=== PATIENT | female | born 1995 | race Caucasian/White ===

== ENCOUNTER 2024-11-18 16:03 | Outpatient (CLI) | payer BC, SELFPAY ==
[2024-11-18 19:18] LABS: HCG,Quantitative 47761 mIU/ml (0-5.42)
[2024-11-20 10:09] LABS: Progesterone 21.5 ng/mL (.)
== END 2024-11-18 23:59 | disposition home or self-care (01) ==
PROVIDERS: PCP Nurse Practitioner Family; Visit Provider Obstetrics & Gynecology
DX: Z32.00 Encounter for pregnancy test, result unknown (principal); Z87.59 Personal history of other complications of pregnancy, childbirth and the puerperium
CPT/HCPCS: 36415; 84144; 84702

== ENCOUNTER 2024-11-23 08:36 | Outpatient (CLI) | payer BC, SELFPAY ==
--- NOTE | 2024-11-23 08:30 | US_ITS ---
PROCEDURE: US OB <= 14 WEEKS FETUS CLINICAL INDICATION: schedule for this week; dates COMPARISON: No exams were available for comparison FINDINGS: Transabdominal sonographic images of the pelvis were obtained. The following parameters are obtained: From her last menstrual period she is 12weeks 6days Viable fetus within the uterine cavity. The cervix appears long and closed. Average ultrasound age 13 weeks 3 days. ISAIAH will remain 06/01/2025. heart rate: 150bpm bpm. BPD: 13weeks 4days HC: 13weeks 4days AC: 13weeks 2days FL: 12weeks 6days HC/AC: 1.25 FL/BPD: 0.44 FL/AC: 0.14 Growth percentile: 37 Amniotic fluid appears normal. No obvious anomalies evident. cord insertion, extremities appear normal. IMPRESSION: 1. Viable fetus within the uterine cavity. heart rate activity is seen. 2. The fluid subjectively appears normal. 3. Fetus measures of 13 weeks and 3 days which is consistent with her last menstrual period. The ISAIAH will remain 06/01/2025. 4. Very limited anatomical scan appears normal. Dictated by: River Lynn MD 11/23/2024 14:55 River Lynn MD in OV 11/23/2024 14:55
== END 2024-11-23 23:59 | disposition home or self-care (01) ==
LOC: RAD 08:37
PROVIDERS: PCP Obstetrics & Gynecology; Visit Provider Obstetrics & Gynecology
DX: Z36.87 Encounter for antenatal screening for uncertain dates (principal); Z3A.13 13 weeks gestation of pregnancy
CPT/HCPCS: 76801

== ENCOUNTER 2025-01-11 10:12 | Outpatient (CLI) | payer BC, SELFPAY ==
--- NOTE | 2025-01-11 10:00 | US_ITS ---
PROCEDURE: US OB /MATERNAL DETAIL CLINICAL INDICATION: Schedule in 5 wks, 20 wk anatomy COMPARISON: US US OB <= 14 WEEKS FETUS from 11/23/2024 FINDINGS: Transabdominal sonographic images of the pelvis were obtained. From her established due date she is 19 weeks 6 days. Single viable intrauterine gestation. Breech position. Placenta: Posteriorplacenta grade 1. There is an average amount of fluid. The cervix appears satisfactory. Closed and measuring 3.17 cm in length. Complete survey performed and was unremarkable on the submitted images as in PACS. No discrete anomalies identified on survey imaging by technologist. Active fetus. Three-vessel cord with satisfactory umbilical cord insertion. 4- chamber heart noted. Situs, aortic arch, LVOT, RVOT, three-vessel view appear normal. Survey of brain & ventricles Unremarkable. Cerebellum, thalamus, choroid plexus, cisterna magna appear normal. Face and neck survey unremarkable. Profile, nasion, lips and nose appeared normal. Diaphragm and chest views unremarkable. Abdomen: Both kidneys noted and unremarkable. Stomach and bladder noted and satisfactory. Spine: Survey of the spine satisfactory with no anomalies identified nor imaged. Cervical, thoracic, lower spine appear normal. Both arms and legs noted. Amniotic Fluid: Adequate. MVP 2.90 cm Measurements: Average ultrasound age 20weeks 1day. Estimated due date by ultrasound age 0905/30/2025. Estimated weight 316g BPD = 20weeks 6days HC = 20weeks 1day AC = 20weeks 3days FL = 19weeks Growth Percentile= 44 Heart Rate = 140bpm Cerebellum = 19weeks 3days Humerus = 20weeks 2days HC/AC is 1.15 FL/BPD is 0.59 FL/AC is 0.19 IMPRESSION: 1. Viable fetus in the breech presentation with a posterior placenta grade 1. 2. The fluid is within normal limits with an MVP 2.90 cm. 3. Anatomical scan appears normal. 4. biometry is consistent with the dates. Dictated by: River Lynn MD 01/11/2025 13:43 River Lynn MD in OV 01/11/2025 13:43
== END 2025-01-11 23:59 | disposition home or self-care (01) ==
LOC: RAD 10:12
PROVIDERS: PCP Obstetrics & Gynecology; Visit Provider Obstetrics & Gynecology
DX: O99.320 Drug use complicating pregnancy, unspecified trimester (principal); F11.20 Opioid dependence, uncomplicated; Z3A.20 20 weeks gestation of pregnancy
CPT/HCPCS: 76811

== ENCOUNTER 2025-03-28 11:31 | Outpatient (CLI) | payer BC, SELFPAY ==
--- OUTSIDE RECORDS SUMMARY | 2025-03-28 11:37 | XMS_ITS | Clinical Summary ---
Author Organization [facility] Address [address] [place] [address] Care Team Providers Care Indigo Vat Tender Cloth Name Role Phone Francie Fisher APRN Primary Care Provider [phone] Social History Tobacco Use Types Packs/Day Years Used Date Smoking Tobacco: Never Assessed Comments Unknown Sex and Gender Information Value Date Recorded Sex Assigned at Not on file Legal Sex Female 11:35 AM EST Gender Identity Not on file Sexual Orientation Not on file Last Filed Vital Signs Vital Sign Reading Time Taken Comments Blood Pressure 120/70 07/16/2013 10:12 AM EST Pulse 80 07/16/2013 10:12 AM EST Temperature 37 C (98.6 F) 07/16/2013 10:12 AM EST Respiratory Rate 16 07/16/2013 10:1 2 AM EST Oxygen Saturation - - Inhaled Oxygen Concentration - - Weight 65.7 kg (144 lb 12.8 oz) 013 10:12 AM EST Height 154.9 cm (5' 1 ) 07/16/2013 10:1 2 AM EST Body Mass Index 27.36 07/16/2013 10:12 AM EST Plan of Treatment Health Maintenance Due Date Last Done Comments ANNUAL PHYSICAL 1995 Annual Gynecologic Pelvic an d Breast Exam 1996 HEPATITIS C SCREENING 1996 TDAP/TD VACCINES (1 - Tdap) 2015 COVID-19 Vaccine (2023-2 5 season) 2024 INFLUENZA VACCINE 06/01/2025 Pneumococcal Vaccine 0-49 Aged Out No longer eligible based on patient's age to complete this topic Care Teams Indigo Vat Tender Cloth Relationship Specialty Start Date End Date Francie Fisher APRN [address] [place] [address] PCP - General Family Medicine 12/21/20
--- OUTSIDE RECORDS SUMMARY | 2025-03-28 11:37 | XMS_ITS | Encounter Summary ---
Author Organization [facility] Address [address] [place] [address] Care Team Providers Care Card Player Name Role Phone Mecca Lam APRN Primary Care Provider [phone] Encounter Details Date Type Department Care Team (Late st Contact Info) Description 10/12/2024 Outside Procedure External Location [address] [place] [address] Provider, [place] Social History Tobacco Use Types Packs/Day Years Used Date Smoking Tobacco: Every Day Cigarettes 0.5 12.6 Started: 09/01/2012 Smokeless Tobacco: Never Alcohol Use Standard Drinks/Week Comments Never 0 (1 standard drink = 0.6 oz pur e alcohol) Humiliation, Afraid, Rape, and Kick questionnair e Answer Date Recorded Within the last year, have y ou been afraid of your partner or ex-partner? No 09/06/2024 Within the last year, have y ou been humiliated or emotionally abused in other ways by your partner or ex-partner? No Within the last year, have y ou been kicked, hit, slapped, or otherwise physically hurt by your partner or ex-partner? No 09/06/2024 Within the last year, have y ou been raped or forced to have any kind of sexual activity by your partner or ex-partner? No 09/06/2024 PHQ-2 Answer Date Recorded Patient Health Questionnaire-2 Score 0 05/24/2024 Hunger Vital Sign Answer Date Recorded Within the past 12 months, y ou worried that your food would run out before you got the money to buy more. Never true 09/06/19 25 Within the past 12 months, t he food you bought just didn't last and you didn't have money to get more. Never true 09/06/2024 PRAPARE - Transportation Answer Date Re corded In the past 12 months, has l ack of transportation kept you from medical appointments or from getting medications? No 01/2025 In the past 12 months, has l ack of transportation kept you from meetings, work, or from getting things needed for daily living? No 09/06/2024 Housing Stability Vital Sign Answer Wil e Recorded In the last 12 months, was t here a time when you were not able to pay the mortgage or rent on time? No 10/29/2023 In the last 12 months, how many places have you lived? 1 10/29/2023 In the last 12 months, was t here a time when you did not have a steady place to sleep or slept in a half-way (including now)? No 10/29/2023 Housing Stability Vital Sign Answer Wil e Recorded In the last 12 months, was t here a time when you were not able to pay the mortgage or rent on time? No 09/06/2024 In the past 12 months, how m any times have you moved where you were living? 0 09/06/2024 At any time in the past 12 m [facility], were you homeless or living in a half-way (including now)? No 09/06/2024 Utilities Answer Date Recorded In the past 12 months has th e electric, gas, oil, or water company threatened to shut off services in your home? No 09/06/2024 PHQ-2A Answer Date Recorded Patient Health Questionnaire-2 Score 0 08/06/2023 Comments No Sex and Gender Information Value Date Recorded Sex Assigned at Not on file Legal Sex Female 7:06 PM EDT Gender Identity Not on file Sexual Orientation Not on file documented as of this encounter Plan of Treatment Not on file documented as of this encounter Procedures Procedure Name Priority Date/Time Associated Diagnosis Comments US PELVIS TRANSVAGINAL 10/12/2024 3:38 PM EST documented in this encounter Results * US Pelvis Transvaginal (10/12/2024 3:38 PM EST) Anatomical Region Laterality Modality Pelvis Ultrasound 10/12/2024 3:38 PM EST Narrative 10/12/2024 6:23 [place] [address] Name: JOSE BARGER Exam Date: 10/12/2024 : 1995 Age 29 years Gender: F Physician: FEMI OAKES Facility: [facility] Facility HSV: Outpatient Exam: US TRANSVAGINAL EXAM DESCRIPTION: US TRANSVAGINAL CLINICAL HISTORY: 29 years Female, - abd cramping COMPARISON: None. FINDINGS: Single intrauterine gestation noted. The crown to rump length measures 6.6 cm, corresponds to gestational age of 6 weeks and 4 days. The gestational sac measures 1.98 cm, corresponds to the gestational age of 7 weeks and 0 days. cardiac activity. Is noted with heart rate of 1 28 bpm. The uterus measures 6 x 4.6 x 6.1 cm. The right ovary is not identified. Left ovary measures 2.3 x 2.4 x 2.9 cm, demonstrates normal vascularity. IMPRESSION: Single viable intrauterine gestation with the gestational age of 6 weeks and 6 days. Electronically signed by: Nivia Weiss MD 10/12/2024 06:18 PM EST Dictated By: Nivia Weiss Transcribed By: Transcribed On: 10/12/2024 5:42 PM Electronically signed by: Nivia Weiss 10/12/2024 Thank you for referring JOSE BARGER to [facility]. Legally authenticated by TUAN BUTTERFIELD 2024-10-12 17:42:00 Procedure Note Provider, Generic [place] - 10/12/2024 [place] [address] Name: JOSE BARGER Exam Date: 10/12/2024 : 1995 Age 29 years Gender: F Physician: FEMI OAKES Facility: [facility] Facility HSV: Outpatient Exam: US TRANSVAGINAL EXAM DESCRIPTION: US TRANSVAGINAL CLINICAL HISTORY: 29 years Female, - abd cramping COMPARISON: None. FINDINGS: Single intrauterine gestation noted. The crown to rump length measures 6.6cm, corresponds to gestational age of 6 weeks and 4 days. The gestationalsac measures 1.98 cm, corresponds to the gestational age of 7 weeks and 0days. cardiac activity. Is noted with heart rate of 1 28 bpm. The uterus measures 6 x 4.6 x 6.1 cm. The right ovary is not identified.Left ovary measures 2.3 x 2.4 x 2.9 cm, demonstrates normal vascularity. IMPRESSION: Single viable intrauterine gestation with the gestational age of 6 weeksand 6 days. Electronically signed by: Nivia Weiss MD 10/12/2024 06:18 PM EST Dictated By: Nivia Weiss Transcribed By: Transcribed On: 10/12/2024 5:42 PM Electronically signed by: Nivia Weiss 10/12/2024 Thank you for referring JOSE BARGER to [facility]. Legally authenticated by TUAN BUTTERFIELD 2024-10-12 17:42:00 us Generic [place] Provider IMG US PROCEDURES Fi nal Result documented in this encounter Visit Diagnoses Not on filedocumented in this encounter Additional Health Concerns Assessment Noted Time A fall risk assessment has been complete d for the patient 05/24/2024 3:25 PM EDT A Body Mass Index follow-up plan has been documented for the patient 09/15/2024 10:01 AM EST documented as of this encounter Care Teams Card Player Relationship Specialty Start Date End Date Mecca Lam APRN [address] [place] [address] PCP - General Family Medicine 04/03/21 documented as of this encounter
--- OUTSIDE RECORDS SUMMARY | 2025-03-28 11:38 | XMS_ITS | Clinical Summary ---
Author Organization Healthcare Address [address] [place] [address] Care Team Providers Care Gas Inspector Name Role Phone Mecca Lam APRN Primary Care Provider [phone] Allergies Active Allergy Reactions Criticality Noted Date Comments Diphenhydramine Unknown - Patient st ates they do not know rxn details Low 07/26/2018 Medications Vit-Fe Fumarate-FA ( Vitamins) 28-0.8 MG tabletIndicatio ns:Encounter for test, result positive Take 1 tablet by mouth 1 (one) time each day. 90 tablet 3 02/25/2024 Active progesterone (Prometrium) 200 MG capsule Take 1 capsule (200 mg) by mouth every night. 90 capsule 3 09/15/2024 Active Active Problems Problem Noted Date Diagnosed Date H/O: 1 miscarriage 01/14/2023 Obesity (BMI 35.0-39.9 without comorbidity) 12/30 Estimated Date of Delivery Comme nts Yes 06/01/2025 Based on Ultraso und Encounters Date Type Department Care Team Description 01/14/2025 Telephone Obstetrics & Gynecology [facility] [place] [address] Glenn Yarbrough MD from Last 3 Months Family History Medical History Relation Name Comments Diabetes Father Yandel Diabetes type II Father Yandel Heart attack Father Yandel Hypertension Father Yandel Diabetes Father's Brother Toni Diabetes Father's Sister Patricia Diabetes Maternal Grandfather Flo Diabetes type II Maternal Grandfather Flo Diabetes Maternal Grandmother Dot Diabetes type II Maternal Grandmother Dot Drug abuse Mother Eleni Hypertension Mother Eleni Kidney failure Mother Eleni Diabetes type II Paternal Grandfather Diabetes type II Paternal Grandmother Relation Name Status Comments Father Yandel Father's Brother Toni Father's Sister Patricia Maternal Grandfather Flo Maternal Grandmother Dot Mother Eleni Paternal Grandfather Paternal Grandmother Social History Tobacco Use Types Packs/Day Years Used Date Smoking Tobacco: Some Days Cigarettes 0.5 12.6 Started: 09/01/2012 Smokeless Tobacco: Never Tobacco Cessation:Ready to Q uit: Not Asked; Counseling Given: Not Answered Alcohol Use Standard Drinks/Week Comments Never 0 [...] Date Recorded Patient Health Questionnaire-2 Score 0 11/29/2024 Hunger Vital Sign Answer Date Recorded Within [...] place to sleep or slept in a [place] (including now)? No 10/29/2023 PHQ-9 Answer Date Recorded Patient Health Questionnaire-9 Score 0 11/29/2024 Housing Stability Vital Sign Answer Wil e Recorded In the last 12 months, was t here a time when you were not able to pay the mortgage or rent on time? No 09/06/2024 In the past 12 months, how m any times have you moved where you were living? 0 09/06/2024 At any time in the past 12 m [facility], were you homeless or living in a [place] facility (including now)? No 09/06/2024 Utilities Answer Date Recorded In the past 12 months has th e electric, gas, oil, or water company threatened to shut off services in your home? No 09/06/2024 PHQ-2A Answer Date Recorded Patient Health Questionnaire-2 Score 0 08/06/2023 Estimated Date of Delivery Comme nts Yes 06/01/2025 Based on Ultraso und Sex and Gender Information Value Date Recorded Sex Assigned at Not on file Legal Sex Female 7:06 PM EDT Gender Identity Not on file Sexual Orientation Not on file Last Filed Vital Signs Vital Sign Reading Time Taken Comments Blood Pressure 126/71 11/29/2024 11:16 AM EDT Pulse 82 11/29/2024 11:16 AM EDT Temperature 36.7 C (98 F) 11/29/2024 11:16 AM EDT Respiratory Rate 16 11/29/2024 11:1 6 AM EDT Oxygen Saturation 100% 11/29/2024 11: 16 AM EDT Inhaled Oxygen Concentration - - Weight 58.5 kg (128 lb 15.5 oz) 025 11:16 AM EDT Height 152.4 cm (5') 11/29/2024 11:16 AM EDT Body Mass Index 25.19 11/29/2024 11:16 AM EDT Plan of Treatment Health Maintenance Due Date Last Done Comments [facility]-Infant/Child/Adol SDOH Screenings 1996 [facility]-Varicella Vaccines (1 of 2 - 13+ 2-dose series) 2009 HPV Vaccines (1 - 3-dose series) 2011 [facility]-DTaP,Tdap,and Td Vaccines (1 - Tdap) 2015 [facility]-Hepatitis B Vaccines (1 of 3 - 19+ 3-dose series) 2015 [facility]-Pneumococcal Vaccine: Pediatrics (0 to 5 Years) and At-Risk Patients (6 to 49 Years) (1 of 2 - PCV) 2015 [facility]-Pap Smear 2017 [id number] Vaccine (1 - 2023- season) 2024 [facility]- SDOH Screenings 03/06/2025 [facility]-Adult SDOH Screenings 03/06/2025 09/06/2024 [facility]-Influenza Vaccine (#1) 2025 [facility]-RSV Vaccine: 60+ Years or (1 - Risk 1-dose series) 05/02/2025 [facility]-Depression Screening 11/29/2025 11/29/2024, 11/01 [facility]-Zoster Vaccines (1 of 2) 2046 [facility]-Diabetes: Hemoglobin A1C Discontinued 01/14/2023, 04/03/2021 [facility]-HIV Screening Completed 10/18/2024, 04/05/2024 [facility]-Hepatitis C Screening Completed 2024, 03/15/2024, 07/26/2018 [facility]-Obesity Intervention Completed 025, 11/09/2024, 11/09/2024, Additional history exists [facility]-HIB Vaccines Aged Out No longer e ligible based on patient's age to complete this topic [facility]-Hepatitis A Vaccines Aged Out No longer eligible based on patient's age to complete this topic [facility]-IPV Vaccines Aged Out No longer e ligible based on patient's age to complete this topic [facility]-Rotavirus Vaccines Aged Out No lo nger eligible based on patient's age to complete this topic Goals Goal Patient Goal Type Associated Problems Recent Progress Patient-Stated? Author Delayed Care Plan CPM S24 PP LABOR (OBSTETRICS) No Open Scheduling, Background Procedures Procedure Name Priority Date/Time Associated Diagnosis Comments HEPATITIS C ANTIBODY W/REFLEX TO HCV QUANT PCR Routine 10/18/2024 12:08 PM EST Unsure of LMP (last menstrual period) as reason for ultrasound scan 7 weeks gestation of HIV 1/2 ANTIBODY/ANTIGEN SCREEN WITH REFLEX TO HIV I/II DIFFERENTIATION Routine 10/18/2024 12:08 PM EST Unsure of LMP (last menstrual period) as reason for ultrasound scan 7 weeks gestation of HEMOGLOBIN A1C Routine 01/14/2023 11:11 AM EDT Family planning education, guidance, and counseling from Last 3 Months or Most Recently Relevant to Health Maintenance Results * HIV 1 & 2 Antibody/Antigen Screen (10/18/2024 12:08 PM EST) Pathologist [facility] HIV 1 & 2 Antibody/Antigen Screen Non Reactive Non Reactive 10/18/2024 6:39 PM EST [facility] Comment:Screening for HIV 1 & 2 antibodies, and P24 antigen is NONREACTIVE. No confirmatory testing is required. Blood Venous blood specimen / Unknown Venipuncture / Unknown 10/18/2024 12:08 PM EST 10/18/2024 5:51 PM EST us Glenn Yarbrough MD LAB BLOOD ORDERABLES Final Resu lt Performing Organization Address [facility] Co de Phone Number [facility] [address] [place] [address] * Hepatitis C Antibody (10/18/2024 12:08 PM EST) Pathologist [facility] Hepatitis C Antibody Negative Negative 10/18/2024 6:34 PM EST [facility] Blood Venous blood specimen / Unknown Venipuncture / Unknown 10/18/2024 12:08 PM EST 10/18/2024 5:51 PM EST us Glenn Yarbrough MD LAB BLOOD ORDERABLES Final Resu lt Performing Organization Address City/[facility]/ZIP Co de Phone Number [facility] [address] [place] [address] * Hemoglobin A1c (01/14/2023 11:11 AM EDT) Hemoglobin A1c 5.5 <5.7 % 01/14/2023 2:08 PM EDT [facility] Blood Venous blood specimen / Unknown Venipuncture / Unknown 01/14/2023 11:11 AM EDT 01/14/2023 1:14 PM EDT Narrative [facility] - 01/14/2023 2:08 PM EDT HA1C Interpretive Data: Diagnosis of Diabetes: Diabetic > or = 6.5% Pre-diabetic 5.7 to 6.4% Non-diabetic < or = 5.6% Glycemic Targets for Type I and Type II Diabetics: Non- Adults <7.0% Adults <6.0% Children and Adolescents <7.5% Source: [place] [employer]. Standards of medical care in diabetes,2017. Diabetes Care.2017:40 (suppl 1):S1-S135. HbA1c assay performed by an ion-exchange chromatography method that is certified traceable to the DCCT. Doris Aleman APRN, DNP LAB BLOOD ORDERABLES nal Result [facility] [address] [place] [address] from Last 3 Months or Most Recently Relevant to Health Maintenance Additional Health Concerns Active Problems Noted Date Diagnosed Date CPM S24 PP LABOR (OBSTETRICS) 11/03/2024 Insurance ANTH Care Teams Gas Inspector Relationship Specialty Start Date End Date Mecca Lam, TRAFFIC SIGNAL MECHANIC [address] [place] [address] PCP - General Family Medicine 04/03/21
[2025-03-28 12:52] LABS: Hematocrit 35.7 % (37.0-47.0); Hemoglobin 12.4 g/dL (12.2-16.2); Immature Granulocytes % 0.3 %; Mean Corpuscular HGB Conc 34.7 g/dL (31.8-35.4); Mean Corpuscular Hemoglobin 33.7 pg (27.0-31.2); Mean Corpuscular Volume 97.0 fl (81-99); Nucleated Red Blood Cells % 0 %; Platelet Count 190 K/mm3 (142-424); Red Blood Count 3.68 M/mm3 (4.20-5.40); Red Cell Distribution Width-SD 46.7 fL; White Blood Count 8.6 K/mm3 (4.8-10.8)
[2025-03-28 13:03] LABS: Glucose 1 Hour 93 mg/dL (74-100)
[2025-03-28 14:24] LABS: RPR W/RFX Titers Nonreactive (Nonreactive)
[2025-03-29 08:12] LABS: Rubella Antibodies, IgG 3.34 index (Immune >0.99)
== END 2025-03-28 23:59 | disposition home or self-care (01) ==
LOC: LAB 11:32
PROVIDERS: PCP Nurse Practitioner Family; Visit Provider Obstetrics & Gynecology
DX: F11.20 Opioid dependence, uncomplicated (principal); O99.330 Smoking (tobacco) complicating pregnancy, unspecified trimester; O99.322 Drug use complicating pregnancy, second trimester
CPT/HCPCS: 36415; 82947; 85025; 86592; 86762

== ENCOUNTER 2025-05-04 11:15 | Outpatient (CLI) | payer BC, SELFPAY ==
--- OUTSIDE RECORDS SUMMARY | 2025-05-05 13:16 | XMS_ITS | Clinical Summary ---
Author Organization [facility] Address [address] [place] [address] Care Team Providers Care Gaming Table Operator Name Role Phone Francie Fisher APRN Primary Care Provider [phone] Social History Tobacco Use Types Packs/Day Years [...] age to complete this topic Care Teams Gaming Table Operator Relationship Specialty Start Date End Date Francie Fisher APRN [address] [place] [address] PCP - General Family Medicine 12/21/20
--- OUTSIDE RECORDS SUMMARY | 2025-05-05 13:16 | XMS_ITS | Encounter Summary ---
Author Organization [facility] Address [address] [place] [address] Care Team Providers Care Facilities Operations Technician Name Role Phone Mecca Lam APRN Primary Care Provider [phone] Encounter Details Date Type Department Care Team (Late st Contact Info) Description 10/12/2024 Outside Procedure External Location [address] [place] [address] Provider, [place] [place] Social History Tobacco Use Types Packs/Day Years [...] place to sleep or slept in a halfway (including now)? No 10/29/2023 Housing Stability Vital Sign Answer Wil e Recorded In the last 12 months, was t here a time when you were not able to pay the mortgage or rent on time? No 09/06/2024 In the past 12 months, how m any times have you moved where you were living? 0 09/06/2024 At any time in the past 12 m [facility], were you homeless or living in a halfway (including now)? No 09/06/2024 Utilities Answer Date [...] PM EST Narrative 10/12/2024 6:23 [place] [address] Name: JOSE BARGER Exam Date: 10/12/2024 : 1995 Age 29 years Gender: F Physician: FEMI OAKES Facility: [facility] Facility HSV: Outpatient Exam: US TRANSVAGINAL EXAM [...] Thank you for referring JOSE BARGER to [facility]. Legally authenticated by TUAN BUTTERFIELD 2024-10-12 17:42:00 Procedure Note Provider, Generic [place] - 10/12/2024 [place] [address] Name: JOSE BARGER Exam Date: 10/12/2024 : 1995 Age 29 years Gender: F Physician: FEMI OAKES Facility: [facility] Facility HSV: Outpatient Exam: US TRANSVAGINAL EXAM [...] Thank you for referring JOSE BARGER to [facility]. Legally authenticated by TUAN BUTTERFIELD 2024-10-12 17:42:00 us Generic [place] Provider IMG US PROCEDURES Fi nal Result documented in this encounter Visit Diagnoses Not on filedocumented in this encounter Additional Health Concerns Assessment Noted Time A fall risk assessment has been complete d for the patient 05/24/2024 3:25 PM EDT A Body Mass Index follow-up plan has been documented for the patient 09/15/2024 10:01 AM EST documented as of this encounter Care Teams Facilities Operations Technician Relationship Specialty Start Date End Date Mecca Lam APRN [address] [place] [address] PCP - General Family Medicine 04/03/21 documented as of this encounter
--- OUTSIDE RECORDS SUMMARY | 2025-05-05 13:16 | XMS_ITS | Clinical Summary ---
Author Organization [facility] Address [address] [place] [address] Care Team Providers Care Site Manager Name Role Phone Mecca Lam APRN Primary Care Provider [phone] Allergies Active Allergy Reactions Criticality Noted Date [...] place to sleep or slept in a detention (including now)? No 10/29/2023 PHQ-9 Answer Date [...] were you homeless or living in a detention (including now)? No 09/06/2024 Utilities Answer Date [...] Vaccines (1 - 3-dose SCDM series) 2023 [id number] Vaccine (1 - season) 2024 UKY- SDOH [...] Reactive Non Reactive 10/18/2024 6:39 PM EST [facility] Comment:Screening for HIV 1 & 2 antibodies, and P24 antigen is NONREACTIVE. No confirmatory testing is required. Blood Venous blood specimen / Unknown Venipuncture / Unknown 10/18/2024 12:08 PM EST 10/18/2024 5:51 PM EST us Glenn Yarbrough MD LAB BLOOD ORDERABLES Final Resu lt Performing Organization Address City/[facility] Co de Phone Number [facility] [address] [place] [address] * Hepatitis C Antibody (10/18/2024 12:08 PM EST) Pathologist [facility] Hepatitis C Antibody Negative Negative 10/18/2024 6:34 PM EST [facility] Blood Venous blood specimen / Unknown Venipuncture / Unknown 10/18/2024 12:08 PM EST 10/18/2024 5:51 PM EST us Glenn Yarbrough MD LAB BLOOD ORDERABLES Final Resu lt [facility] [address] [place] [address] * Hemoglobin A1c (01/14/2023 11:11 AM EDT) Hemoglobin A1c 5.5 <5.7 % 01/14/2023 2:08 PM EDT [facility] Blood Venous blood specimen [...] Adults <6.0% Children and Adolescents <7.5% Source: [employer]. Standards of medical care in diabetes,2017. Diabetes Care.2017:40 (suppl 1):S1-S135. HbA1c assay performed by an ion-exchange chromatography method that is certified traceable to the DCCT. us Doris Aleman RN LAB BLOOD ORDERABLES Final Res [facility] [address] [place] [id number] from Last 3 Months or Most Recently Relevant to Health Maintenance Additional Health Concerns Active Problems Noted Date Diagnosed Date CPM S24 PP LABOR (OBSTETRICS) 11/03/2024 Insurance ANTHEM Care Teams Site Manager Relationship Specialty Start Date End Date Mecca Lam APRN [facility] [address] PCP - General Family Medicine 04/03/21
== END 2025-05-04 23:59 | disposition home or self-care (01) ==
LOC: LAB.DROPOF 05-05 13:14
PROVIDERS: PCP Obstetrics & Gynecology; Visit Provider Obstetrics & Gynecology
DX: O99.330 Smoking (tobacco) complicating pregnancy, unspecified trimester (principal); O99.320 Drug use complicating pregnancy, unspecified trimester; O09.299 Supervision of pregnancy with other poor reproductive or obstetric history, unspecified trimester; F11.20 Opioid dependence, uncomplicated; Z3A.00 Weeks of gestation of pregnancy not specified
CPT/HCPCS: 86403

== ENCOUNTER 2025-05-04 12:22 | Inpatient (IN) | payer BC, SELFPAY ==
[2025-05-04] VITALS (28 sets, daily range): BP systolic 123–184; BP diastolic 69–109; PULSE 61–78; RESP 14–18; TEMP 36.7–36.8; O2SAT 98; BMI 26.7
--- OUTSIDE RECORDS SUMMARY | 2025-05-04 12:06 | XMS_ITS | Clinical Summary ---
Author Organization [facility] Address [address] [place] [address] Care Team Providers Care Hydroelectric Operator Name Role Phone Mecca Lam APRN Primary Care Provider [phone] Allergies Active Allergy Reactions Criticality Noted Date [...] nts Yes 06/01/2025 Based on Ultraso und Family History Medical History Relation Name Comments [...] Date Smoking Tobacco: Some Days Cigarettes 0.5 12.7 Started: 09/01/2012 Smokeless Tobacco: Never Tobacco Cessation:Ready [...] in a half-way (including now)? No 10/29/2023 PHQ-9 Answer Date [...] any time in the past 12 m ont, were you homeless or living in a [...] Health Maintenance Due Date Last Done Comments [facility]-/Child/Adol SDOH Screenings 1996 [facility]-Varicella Vaccines (1 of 2 - 13+ 2-dose series) 2009 [facility]-DTaP,Tdap,and Td Vaccines (1 - Tdap) 2015 [facility]-Hepatitis B Vaccines (1 of 3 - 19+ 3-dose series) 2015 [facility]-Pneumococcal Vaccine: Pediatrics (0 to 5 Years) and At-Risk Patients (6 to 49 Years) (1 of 2 - PCV) 2015 [facility]-Pap Smear 2017 HPV Vaccines (1 - 3-dose SCDM series) 2023 [id number] Vaccine (1 - season) 2024 [facility]- SDOH Screenings 03/06/2025 [facility]-Adult [...] ultrasound scan 7 weeks gestation of HIV /2 ANTIBODY/ANTIGEN SCREEN WITH REFLEX TO HIV I/II [...] 2 Antibody/Antigen Screen (10/18/2024 12:08 PM EST) HIV 1 & 2 Antibody/Antigen Screen Non Reactive Non Reactive 10/18/2024 6:39 PM EST [facility] Comment:Screening for HIV 1 & 2 antibodies, and P24 antigen is NONREACTIVE. No confirmatory testing is required. Blood Venous blood specimen / Unknown Venipuncture / Unknown 10/18/2024 12:08 PM EST 10/18/2024 5:51 PM EST us Glenn Yarbrough MD LAB BLOOD ORDERABLES Final Resu lt Performing Organization Address City/[facility] Co de Phone Number [facility] [address] [place] [address] * Hepatitis C Antibody (10/18/2024 12:08 PM EST) Pathologist [facility] Hepatitis C Antibody Negative Negative 10/18/2024 6:34 PM EST [facility] Blood Venous blood specimen / Unknown Venipuncture / Unknown 10/18/2024 12:08 PM EST 10/18/2024 5:51 PM EST us Glenn Yarbrough MD LAB BLOOD ORDERABLES Final Resu lt [facility] [address] [place] [address] * Hemoglobin A1c (01/14/2023 11:11 AM EDT) Hemoglobin A1c 5.5 <5.7 % 01/14/2023 2:08 PM EDT [facility] Blood Venous blood specimen / Unknown Venipuncture / Unknown 01/14/2023 11:11 AM EDT 01/14/2023 1:14 PM EDT Narrative [facility] - 01/14/2023 2:08 PM EDT HA1C Interpretive Data: Diagnosis of Diabetes: Diabetic > or = 6.5% Pre-diabetic 5.7 to 6.4% Non-diabetic < or = 5.6% Glycemic Targets for Type I and Type II Diabetics: Non- Adults <7.0% Adults <6.0% Children and Adolescents <7.5% Source: [place] [employer]. Standards of medical care in diabetes,2017. Diabetes Care.2017:40 (suppl 1):S1-S135. HbA1c assay performed by an ion-exchange chromatography method that is certified traceable to the DCCT. us Doris Aleman RN LAB BLOOD ORDERABLES Final Res ult [facility] [address] [place] [id number] from Last 3 Months or Most Recently Relevant to Health Maintenance Additional Health Concerns Active Problems Noted Date Diagnosed Date CPM S24 PP LABOR (OBSTETRICS) 11/03/2024 Insurance ANTHEM Care Teams Hydroelectric Operator Relationship Specialty Start Date End Date Mecca Lam APRN [facility] [place] [address] PCP - General Family Medicine 04/03/21
--- OUTSIDE RECORDS SUMMARY | 2025-05-04 12:06 | XMS_ITS | Encounter Summary ---
Author Organization [facility] Address [address] [place] [address] Care Team Providers Care Titrator Name Role Phone Mecca Lam APRN Primary Care Provider [phone] Encounter Details Date Type Department Care Team (Late st Contact Info) Description 10/12/2024 Outside Procedure External Location [address] [place] [address] Provider, [facility] [place] Social History Tobacco Use Types Packs/Day Years Used Date Smoking Tobacco: Every Day Cigarettes 0.5 12.7 Started: 09/01/2012 Smokeless Tobacco: Never Alcohol Use [...] place to sleep or slept in a chcf (including now)? No 10/29/2023 Housing Stability Vital Sign Answer Wil e Recorded In the last 12 months, was t here a time when you were not able to pay the mortgage or rent on time? No 09/06/2024 In the past 12 months, how m any times have you moved where you were living? 0 09/06/2024 At any time in the past 12 m [facility], were you homeless or living in a chcf (including now)? No 09/06/2024 Utilities Answer Date [...] PM EST Narrative 10/12/2024 6:23 [place] [address] Name: JOSE BARGER Exam Date: 10/12/2024 : 1995 Age 29 years Gender: F Physician: FEMI OAKES Facility: [facility] Facility HSV: Outpatient Exam: US TRANSVAGINAL EXAM [...] Thank you for referring JOSE BARGER to [facility]. Legally authenticated by TUAN BUTTERFIELD 2024-10-12 17:42:00 Procedure Note Provider, Generic [place] - 10/12/2024 [place] [address] Name: JOSE BARGER Exam Date: 10/12/2024 : 1995 Age 29 years Gender: F Physician: FEMI OAKES Facility: [facility] Facility HSV: Outpatient Exam: US TRANSVAGINAL EXAM [...] Thank you for referring JOSE BARGER to [facility]. Legally authenticated by TUAN BUTTERFIELD 2024-10-12 17:42:00 us Generic [place] Provider IMG US PROCEDURES Fi nal Result documented in this encounter Visit Diagnoses Not on filedocumented in this encounter Additional Health Concerns Assessment Noted Time A fall risk assessment has been complete d for the patient 05/24/2024 3:25 PM EDT A Body Mass Index follow-up plan has been documented for the patient 09/15/2024 10:01 AM EST documented as of this encounter Care Teams Titrator Relationship Specialty Start Date End Date Mecca Lam APRN [address] [place] [address] PCP - General Family Medicine 04/03/21 documented as of this encounter
--- OUTSIDE RECORDS SUMMARY | 2025-05-04 12:06 | XMS_ITS | Clinical Summary ---
Author Organization [facility] Address [address] [place] [address] Care Team Providers Care Assistant To The Vice President Name Role Phone Francie Fisher APRN Primary Care Provider [phone] Social History Tobacco Use Types Packs/Day Years [...] age to complete this topic Care Teams Assistant To The Vice President Relationship Specialty Start Date End Date Francie Fisher APRN [address] [place] [address] PCP - General Family Medicine 12/21/20
--- NOTE | 2025-05-04 12:13 | US_ITS ---
PROCEDURE INFORMATION: Exam: US , Follow up Exam date and time: 05/04/2025 3:04 PM Age: 29 years old Clinical indication: Other: Elevated BP; LABS AND CLINICAL REPORTS: Gestational age (Established): 36 w 0 d Estimated due date (Established): 06/01/2025 TECHNIQUE: Imaging protocol: Transabdominal ultrasound of the uterus, real time with image documentation. Follow-up (eg, re-evaluation of size by measuring standard growth parameters and amniotic fluid volume, re-evaluation of organ system(s) suspected or confirmed to be abnormal on a previous scan). COMPARISON: US OB /MATERNAL DETAIL 01/11/2025 10:18 AM FINDINGS: Gestation: Intrauterine gestation. presentation and position: Cephalic position. Placenta: Posterior placenta. BIOMETRY: Gestational age (AUA): 33 w 6 d Estimated due date (AUA): 06/16/2025 Estimated weight: 2189.5 g. EFW by AC, BPD, FL, HC, Hadlock 1985. 4 % percentile Biparietal diameter (BPD): 8.72 cm. EGA (BPD) is 35 w 1 d. 36 % percentile Head circumference (HC): 30.94 cm. EGA (HC) is 34 w 4 d. 3 % percentile Abdominal circumference (AC): 29.84 cm. EGA (AC) is 33 w 6 d. 8 % percentile Femur length (FL): 6.1 cm. EGA (FL) is 31 w 5 d HC/AC: 1.04 FL/BPD: 0.7 FL/AC: 0.2 IMPRESSION: Unremarkable limited exam. Since the previous examination the estimated date of delivery has changed 18 days. This could represent some degree of intrauterine growth retardation. PROCEDURE INFORMATION: Exam: US Biophysical Profile Without Non-Stress Test Exam date and time: 05/04/2025 3:04 PM Age: 29 years old Clinical indication: Other: Elevated BP; TECHNIQUE: Imaging protocol: US biophysical profile without non-stress testing. COMPARISON: US OB /MATERNAL DETAIL 01/11/2025 10:18 AM FINDINGS: heart rate: 113 bpm Amniotic fluid index: EL is 10.06 cm. BIOPHYSICAL PROFILE: breathing (BPP): 2 /2 gross body movement (BPP): 2 /2 tone (BPP): 2 /2 Amniotic fluid (BPP): 2 /2 Biophysical profile score (BPP): 8 /8 IMPRESSION: Biophysical profile score is 8 out of 8.
[2025-05-04] MEDS: LABETALOL 5MG/ML 20ML MDV 20 MG IV ×2 (12:43→16:35)
[2025-05-04 12:44] LABS: Hematocrit 33.7 % (37.0-47.0); Hemoglobin 11.5 g/dL (12.2-16.2); Immature Granulocytes % 0.4 %; Mean Corpuscular HGB Conc 34.1 g/dL (31.8-35.4); Mean Corpuscular Hemoglobin 32.3 pg (27.0-31.2); Mean Corpuscular Volume 94.7 fl (81-99); Nucleated Red Blood Cells % 0 %; Platelet Count 175 K/mm3 (142-424); Red Blood Count 3.56 M/mm3 (4.20-5.40); Red Cell Distribution Width-SD 43.1 fL; White Blood Count 6.8 K/mm3 (4.8-10.8)
[2025-05-04] MEDS: LACTATED RINGERS 1000ML 1,000 ML 75 ML IV (12:48)
[2025-05-04] MEDS: LABETALOL 5MG/ML 20ML MDV 40 MG IV (12:53)
[2025-05-04] MEDS: MAGNESIUM SULFATE IN WATER 4 GM/50 ML PIGGYBACK IV (12:54)
--- NOTE | 2025-05-04 12:54 | EXP.OB.APHP ---
OB - H&P: HPI Antepartum History of Present Illness Chief complaint: Elevated blood pressure History of present illness: Mrs Ivis Bauer is a 29 yo at 36w0d who presents to [facility] from the office for severe range BP in the office, 186/108 followed by 182/102. She admits to intermittent headaches. Denies vision changes and RUQ pain. No headache today. She has had good care. complicated by tobacco use and methadone maintenance treatment. History of IV drug use. Baby is active. Denies contractions, vaginal bleeding and leakage of fluid. History of Present Criteria for establishing EDC:: based on 1st trimester US only care: good care Ultrasounds: normal mid trimester US Obstetrical complications: gestational hypertension Labs Blood type: A (+) positive Rubella: immune RPR/VDRL: nonreactive GBS status: unknown HBsAG: negative [facility] Disclaimer: The information contained in this section may have been updated after the patient was seen, as this information can be updated by other users. Medical History (Updated 05/04/25 @ 13:08 by Cally Martin DO) Gestational hypertension Nausea/vomiting in History of miscarriage Tobacco use affecting , antepartum Methadone maintenance treatment affecting No significant past medical history Surgical History No significant past surgical history Social History Smoking Status: Heavy tobacco smoker quit status: considering quitting alcohol intake: never current occupational status: unemployed Travel in the last 8 weeks?: None Have you lived/traveled outside US in past 30 days?: No Contact w/someone who lives/traveled outside US past 30 days?: No Exposure to someone with infectious disease in past 14 days?: No Do you have a fever (greater than 100.4 F or 38 C)?: No Have you tested positive for COVID-19?: No Exposed to someone with COVID-19 in past 14 days?: No Do you have a sore throat?: No Do you have a cough?: No Do you have any weakness?: No Do you have any diarrhea?: No Are you experiencing any unusual bleeding?: No Do you have any muscle aches/pain?: No Do you have any abdominal pain?: No Are you experiencing loss of taste or smell?: No Other Medical History Have you received the Flu Vaccine for this season: No Have you received the Pneumonia Vaccine: No Review of Systems Review of Systems Review of systems:: pertinent systems reviewed and negative unless documented below Constitutional Constitutional: Reports headache(s) ENT Ears, Nose, Mouth, and Throat: Reports headache(s) *Neurologic Neurologic: Reports headache(s) Meds Home Medications and Allergies Home Medications ?Medication ?Instructions ?Recorded ?Confirmed ?Type methadone 10 mg/mL oral concentrate 32.5 mg PO DAILY 11/22/24 05/04/25 History vits no.126-ferrous fum tab PO 11/22/24 05/04/25 History 28 mg iron-folic acid 800 mcg tablet (Classic ) ondansetron 4 mg disintegrating 4 mg PO Q8H PRN nausea and 04/25/25 05/04/25 Rx tablet vomiting #30 tabs New Prescriptions to Start Prescriptions: Allergies Allergy/AdvReac Type Severity Reaction Status Date / Time No Known Allergies Allergy Verified 05/04/25 11:07 OB - H&P: Exam Physical Exam Vital signs: BP 169/96 H 05/04/25 12:53 Constitutional no acute distress and cooperative Routine HEENT Exam Head: Present normocephalic and atraumatic Eye: Absent conjunctivae pink ENT: Present mucous membranes moist Routine Neck Exam Present full ROM Routine Respiratory Exam Present CTA bilaterally and normal respiratory effort Routine Cardiovascular Exam Present RRR Routine Abdominal Exam Present soft (Gravid); Absent tenderness Routine Rectal Exam Patient deferred: visual exam Routine Exam External: Present normal urethra appearance; Absent tenderness, lesions or lacerations Routine Extremities Exam Present edema (+2 bilateral lower extremity edema) and full ROM; Absent calf tenderness Routine Neurological Exam Present alert, moving all extremities and normal speech Routine Psychiatric Exam Present normal affect and cooperative Detailed Labor and Delivery Exam Membranes: intact Baseline heart rate: 130 monitor accelerations: Present monitor decelerations: None nursing home variability: Moderate (11-25) Contraction frequency (min): 0 OB - A/P Antepartum (1) Gestational hypertension: Status: Acute (2) Methadone maintenance treatment affecting : Status: Acute (3) Tobacco use affecting , antepartum: Status: Acute (4) History of miscarriage: Problem details: x 1 Status: Acute Additional Plan Plan: induction Additional Information:: Admit to L&D for BP control and induction secondary to GHTN with severe range BP She received IV Labetalol 20 mg x 1 and then required Labetalol 40 mg x 1 Mag sulfate 4 gram bolus followed by 2 gram/hr maintenance Check mag level 4 hours after bolus PIH labs Ultrasound for baby's growth. Fundal height is measuring S<D Cervical exam will be performed and then decision made on induction method GBS collected today... results in process -- Start ampicillin for GBS prophylaxis Close monitoring
[2025-05-04 13:07] LABS: Alanine Aminotransferase 13 U/L (12-78); Anion Gap 9.6 mEq/L (5-15); Aspartate Amino Transferase 23 U/L (14-36); Blood Urea Nitrogen 16 mg/dl (7-17); Calcium 8.8 mg/dl (8.4-10.2); Carbon Dioxide 21 mmol/L (22.0-30.0); Chloride 106 mmol/L (98-107); Creatinine Clearance Estimated 137 mL/min (50-200); Creatinine,Serum 0.60 mg/dl (0.52-1.04); Estimated Glomerular Filt Rate 119 ml/min (>60); GFR (African American) 144 ML/MIN (>60); Glucose 73 mg/dl (74-100); Potassium 3.6 mmoL/L (3.5-5.1); Sodium 133 mmol/L (136-145); Uric Acid 4.0 mg/dl (2.5-6.2)
[2025-05-04] MEDS: MAGNESIUM SULFATE IN WATER 20 GM/500 ML IV.SOLN IV ×2 (13:18→23:09)
[2025-05-04 13:30] LABS: Activated Partial Thrombo Time 25.3 seconds (22.8-30.6); Fibrinogen 416 mg/dL (229.9-363.5); INR 0.91 (0.9-1.1); Prothrombin Time 10.2 seconds (10.1-12.5)
[2025-05-04 13:34] LABS: RPR W/RFX Titers Nonreactive (Nonreactive)
[2025-05-04 14:01] LABS: Hepatitis C Ab Qual. W/ RFX NEGATIVE (Negative)
[2025-05-04 14:09] LABS: Barbiturates Screen,Urine Negative ng/ml (<200)
[2025-05-04 14:10] LABS: Amphetamine/Metha Screen,Urine Negative ng/ml (<1000); Benzodiazepines Screen,Urine Negative ng/ml (<200)
[2025-05-04 14:12] LABS: Methadone Screen,Urine Positive ng/ml (<300)
[2025-05-04 14:13] LABS: Opiate Screen,Urine Negative ng/ml (<300)
[2025-05-04 14:14] LABS: Phencyclidine Screen,Urine Negative ng/ml (<25)
[2025-05-04] MEDS: LABETALOL 100MG TABLET 200 MG PO (16:40)
[2025-05-04 17:59] LABS: Magnesium 5.6 mg/dl (1.6-2.3)
[2025-05-04] MEDS: NICOTINE 14MG/24HRS PATCH 14 MG TD (20:30)
[2025-05-04] MEDS: MORPHINE 2MG/ML SYRINGE 1 MG IV (22:19)
[2025-05-04] MEDS: ACETAMINOPHEN 500MG TAB 1000 MG PO (23:36)
[2025-05-05] VITALS (40 sets, daily range): BP systolic 112–182; BP diastolic 60–104; PULSE 58–79; RESP 12–18; TEMP 36.3–37.1; O2SAT 97–100
[2025-05-05] MEDS: LACTATED RINGERS 1000ML 1,000 ML 75 ML IV ×2 (00:41→09:03)
[2025-05-05] MEDS: LABETALOL 5MG/ML 20ML MDV 20 MG IV ×3 (05:37→19:32)
[2025-05-05] MEDS: AMPICILLIN SODIUM 2 GM in 0.9 % SODIUM CHLORIDE 100 ML IV (05:40)
[2025-05-05] MEDS: LABETALOL 5MG/ML 20ML MDV 40 MG IV ×2 (05:57→20:24)
[2025-05-05] MEDS: ONDANSETRON 4MG/2ML VIAL 4 MG IV (08:07)
[2025-05-05] MEDS: LABETALOL 100MG TABLET 200 MG PO (08:13)
[2025-05-05 08:17] LABS: Magnesium 6.6 mg/dl (1.6-2.3)
[2025-05-05] MEDS: LACTATED RINGERS 1000ML 500 ML 999 ML IV (08:36)
[2025-05-05] MEDS: MAGNESIUM SULFATE IN WATER 20 GM/500 ML IV.SOLN IV ×2 (08:53→09:39)
--- NOTE | 2025-05-05 09:28 | P.PNANES_ITS ---
[facility] Disclaimer: The information contained in this section may have been updated after the patient was seen, as this information can be updated by other users. Medical History affected by intrauterine growth restriction (IUGR) Gestational hypertension Nausea/vomiting in History of miscarriage Tobacco use affecting , antepartum Methadone maintenance treatment affecting No significant past medical history Surgical History No significant past surgical history Social History Smoking Status: Heavy tobacco smoker quit status: considering quitting alcohol intake: never substance use type: other current occupational status: unemployed Travel in the last 8 weeks?: None [facility] Anesthesia Checklist Patient Identification Patient Identification: Arm Band and Verbal (Name & ) Structural Data Admitted From: Inpatient Planned Operative Procedure/s: epidrual Consent for Planned Operative Procedure(s) Verified: Yes Verified Documents: History and Physical NPO Status Verified Time NPO: 00:00 Additional verifications Patient : Yes Airway Assessment Mallampati Score:: Class II Dentition: Poor Dentition Neurological Assessment Level of Consciousness: Awake, Alert and Appropriate Anesthesia Plan Anesthesia Risk discussed: Yes Anesthesia Plan: Verified Anesthesia Type: Epidural
--- NOTE | 2025-05-05 09:33 | EXP.LABOR.NO ---
Labor Note Subjective: Date: 05/05/25 Time: 09:33 Comment:: Uncomfortable without epidural. She is having irregular contractions. Objective: NST:: Non-reactive Contractions:: infrequent Cervical Dilation:: 1 Effacement:: 80% Station: -1 Membranes: artificially ruptured Comment:: Clear fluid Fetus: monitoring type:: External Problems: (1) Gestational hypertension: Qualifiers: Trimester: third trimester Qualified Code(s): O13.3 - Gestational [-induced] hypertension without significant proteinuria, third trimester Category: Medical Code(s): O13.9 - Gestational [-induced] hypertension without significant proteinuria, unspecified trimester (2) affected by intrauterine growth restriction (IUGR): Category: Medical Code(s): O36.5990 - Maternal care for other known or suspected poor growth, unspecified trimester, not applicable or unspecified (3) Tobacco use affecting , antepartum: Category: Medical Code(s): O99.330 - Smoking (tobacco) complicating , unspecified trimester (4) Methadone maintenance treatment affecting : Qualifiers: Trimester: second trimester Qualified Code(s): O99.322 - Drug use complicating , second trimester; F11.20 - Opioid dependence, uncomplicated Category: Medical Code(s): O99.320 - Drug use complicating , unspecified trimester; F11.20 - Opioid dependence, uncomplicated Plan: Anesthesia for epidural?: Yes Continue to monitor?: Yes Comment:: Amniotomy performed with amnihook without difficulty. Clear fluid noted BP elevated. Labetalol 20 mg IV given. She is also receiving scheduled Labetalol 200 mg PO q 12 hrs She is on mag sulfate. AM mag level 6.6 Discussed epidural to help with pain control and BP Plan for epidural Close monitoring
[2025-05-05] MEDS: OXYTOCIN/RINGERS LACTATE 30 UNITS/500 ML BAG IV (09:39)
[2025-05-05] MEDS: AMPICILLIN SODIUM 1 GM in 0.9 % SODIUM CHLORIDE 50 ML IV (10:23)
[2025-05-05 10:48] LABS: Hepatitis B Surface Antigen Negative (Negative)
[2025-05-05] MEDS: DEXTROSE 5%-LACTATED RINGERS 1,000 ML 999 ML IV (11:25)
[2025-05-05 13:40] LABS: Magnesium 6.1 mg/dl (1.6-2.3)
[2025-05-05] MEDS: CITRIC ACID/SODIUM CITRATE ORAL SOLN 30ML UDC 30 ML PO (14:18)
[2025-05-05] MEDS: LACTATED RINGERS 1000ML 1,000 ML 999 ML IV (14:50)
[2025-05-05] MEDS: AZITHROMYCIN 500 MG in 0.9 % SODIUM CHLORIDE 250 ML 250 MG IV (15:58)
--- NOTE | 2025-05-05 16:39 | P.OP_ITS ---
Date of procedure: 05/05/25 Pre-op Diagnosis:: 1. IUP at 36w1d 2. GHTN with severe range blood pressure on magnesium sulfate and labetalol 3. IUGR, 4 %ile 4. Methadone maintenance treatment affecting 5. Tobacco use in 6. Marijuana use in 7. Failure to progress 8. bradycardia Post-op Diagnosis:: 1. IUP at 36w1d 2. GHTN with severe range blood pressure on magnesium sulfate and labetalol 3. IUGR, 4 %ile 4. Methadone maintenance treatment affecting 5. Tobacco use in 6. Marijuana use in 7. Failure to progress 8. bradycardia 9. Nuchal cord x 1 Procedure performed:: PLTCS Surgeon:: Cally Martin DO Grinder Mill Operator(s):: Nafisa Glynn DO INTERNET SYSTEMS ADMINISTRATOR:: Charlie Laurent Anesthesia: epidural Estimated blood loss (mL): 350 Clinical Note:: Mrs Ivis Bauer is a 29 yo at 36w0d admitted to [facility] L&D from the office for severe range BP in the office, 186/108 followed by 182/102. She admits to intermittent headaches. Denies vision changes and RUQ pain. No h eadache today. She has had good care. complicated by tobacco use and methadone maintenance treatment. History of IV drug use. Baby is active. Denies contractions, vaginal bleeding and leakage of fluid. Upon arrival to L&D, BPP was still severe range. PIH labs within normal limits. Urine spot protein/creatinine ratio was within normal limits. Growth ultrasound was performed for small fundal height. EFW was 4 %ile. She underwent induction of labor with Cytotec 50 mcg q 6 hrs x 3 doses followed by Pitocin secondary to GHTN with severe range blood pressures and IUGR. She was started on mag sulfate and received multiple doses of IV labetalol as well as started on Labetalol 200 mg PO q 12 hours. Amniotomy was performed around 0800 on 05/05/25. Clear fluid noted. Cervix was 1/80/-1. Minimal cervical spinning frame changer 5 hours. Pitocin reached 6. heart rate baseline gradually decreased to 95 bpm with minimal and moderate variability, no accelerations and no decelerations. Discussed cervical exam and bradycardia with patient and her . Decision was made to proceed with . Discussed risks, benefits, alternatives, expectations and possible complications of surgery. All questions addressed and answered. She voiced understanding of risks and possible complications. Consent form signed. Operative findings:: 1. Live male baby, Mikhail, weighing 4 lb 13 oz, apgars 8 (1 min), 9 (5 min) 2. Grossly normal appearing uterus, bilateral fallopian tubes and ovaries Operative note:: The risks, benefits and alternatives of the procedure were reviewed with the patient. Informed consent was obtained. Patient was taken to the operating room where epidural was bolused. The patient received 2 grams of Ancef and Azithromycin 500 mg IV preoperatively. Patient was placed in dorsal supine position with a leftward tilt. SCDs in place. Ceballos catheter had been placed and was draining clear urine prior to the start of the procedure. heart tones were obtained. Vagina was prepped with Betadine swabs x 3. Patient was then prepped and draped in normal sterile fashion. Allis clamp test was performed to ensure adequate anesthesia. A Pfannenstiel skin incision was made 2 cm above pubic symphysis. This was carried through to underlying layer of fascia. Fascia was incised in midline, extended laterally with Granados scissors. Superior aspect of fascial incision was grasped with two Maribell clamps, elevated up, and rectus muscle dissected off bluntly and sharply with Granados scissors. The retcus muscle was then in the midline and the peritoneum was entered bluntly with a digit. Peritoneal incision was then extended superiorly and inferiorly with good visualization of the bladder. Tomas retractor was inserted. The lower uterine segment was incised in a transverse fashion. Small amount of clear amniotic fluid was noted. Head was delivered without difficulty. Remainder of body was delivered without difficulty. Mouth and nares were bulb suctioned. Spontaneous cry was noted. Delayed cord clamping was performed for 60 seconds. The umbilical cord was clamped and cut. The was handed to awaiting pediatric staff in stable condition. Dr. Gomez was present. Apgars were 8(1 min), 9(5 min). Cord blood was obtained. Gentle traction on the umbilical cord and uterine fundal massage delivered the placenta. Placenta was intact. Placenta will be sent to pathology for review. Uterus was cleared of all clots and debris with a moist laparotomy sponge. Corners of the uterine incision were grasped with Allis clamps. The uterine incision was reapproximated with # 1 Vicryl suture in a running, locked stitch. Second layer of the same stitch was used to imbricate the incision. Vesicouterine peritoneum was reapproximated in a running locked stitch with 2-0 Vicryl suture. Hemostasis was noted. Posterior cul-de-sac was cleaned with moist laparotomy sponge. Gutters cleared of all clots and debris with a moist laparotomy sponge. Reinspection of the lower uterine segment demonstrated small amount of oozing. Surgicel powder was applied over uterine incision. Hemostasis was noted. At this point all instruments and sponges were removed from the pelvis.? The peritoneum was grasped with Gissel clamps x 3. The peritoneum was reapproximated with 0 Vicryl suture in a running stitch. The corners of the fascia were grasped with Maribell clamps, and the fascia was reapproximated with two # 1 Vicryl suture overlapped to the right of midline. Subcutaneous tissue was irrigated with clear return of fluids. The subcutaneous tissue was reapproximated with 3-0 Vicryl. The skin was reapproximated with Insorb maury. Steri strips and Telfa was placed over closed Pfannenstiel skin incision. At the end of the procedure, the uterus was firm with minimal vaginal bleeding. Patient tolerated the procedure well. Instrument, sponges and needle counts were correct x 2. Mom and baby were transported to recovery room in stable condition. Condition: stable Disposition: floor Specimens:: 1. Placenta and umbilical cord 2. Cord blood Complications:: None
--- NOTE | 2025-05-05 16:46 | P.PNANES_ITS ---
[facility] Anesthesia Record Part I Anesthesia Record I Intake, IV Amount: 500 Hydration: Adequate Estimated blood loss (mL): 350 Urine output (mL): 150 Blood Products used (#): none Blood Pressure: 146/104 SaO2: 97 Pulse Rate: 75 Airway Patency: Patent Respiratory Rate: 16 Temperature: 98.7 F Patient is:: Awake, Drowsy and Stable Stable to PACU at:: 16:35
--- NOTE | 2025-05-05 16:51 | SUR.OPER ---
1635- detailed report given to georgina snell in OB. Pt VSS, dressings CDI, bed in lowest position with spouse at bedside.
[2025-05-05] MEDS: OXYTOCIN/RINGERS LACTATE 30 UNITS/500 ML BAG 40 UNITS IV (17:40)
[2025-05-05] MEDS: ACETAMINOPHEN 500MG TAB 1000 MG PO (17:42)
[2025-05-05] MEDS: MORPHINE 4MG/ML SYRINGE 4 MG IV ×2 (18:03→21:24)
[2025-05-05] MEDS: LABETALOL 100MG TABLET 300 MG PO (21:21)
[2025-05-05] MEDS: SIMETHICONE 80MG CHEWABLE TABLET 160 MG PO (21:22)
[2025-05-05] MEDS: ACETAMINOPHEN 1,000 MG/100 ML ML 400 MG IV (23:26)
[2025-05-05] MEDS: LACTATED RINGERS 1000ML 1,000 ML 60 ML IV (23:33)
[2025-05-06] VITALS (18 sets, daily range): BP systolic 125–166; BP diastolic 73–104; PULSE 56–80; RESP 12–18; TEMP 36.6–36.8; O2SAT 98–99
[2025-05-06] MEDS: LABETALOL 5MG/ML 20ML MDV 20 MG IV (01:00)
[2025-05-06] MEDS: MORPHINE 4MG/ML SYRINGE 4 MG IV ×3 (01:29→22:21)
[2025-05-06] MEDS: KETOROLAC 30MG/ML VIAL 30 MG IV ×2 (03:59→10:34)
[2025-05-06] MEDS: MAGNESIUM SULFATE IN WATER 20 GM/500 ML IV.SOLN IV ×2 (04:07→09:35)
[2025-05-06] MEDS: LABETALOL 100MG TABLET 300 MG PO ×3 (05:46→21:24)
[2025-05-06] MEDS: ACETAMINOPHEN 1,000 MG/100 ML ML 400 MG IV ×2 (05:47→11:10)
[2025-05-06 06:25] LABS: Alanine Aminotransferase 11 U/L (12-78); Albumin Level 2.8 g/dl (3.5-5.0); Albumin/Globulin Ratio 1.0 (1.1-1.8); Alkaline Phosphatase 120 U/L (38-126); Anion Gap 7.0 mEq/L (5-15); Aspartate Amino Transferase 25 U/L (14-36); Bilirubin,Total 0.2 mg/dl (0.2-1.3); Blood Urea Nitrogen 5 mg/dl (7-17); Calcium 6.7 mg/dl (8.4-10.2); Carbon Dioxide 24 mmol/L (22.0-30.0); Chloride 105 mmol/L (98-107); Creatinine Clearance Estimated 137 mL/min (50-200); Creatinine,Serum 0.60 mg/dl (0.52-1.04); Estimated Glomerular Filt Rate 119 ml/min (>60); GFR (African American) 144 ML/MIN (>60); Globulin 2.9 g/dL (1.3-3.2); Glucose 85 mg/dl (74-100); Magnesium 4.7 mg/dl (1.6-2.3); Potassium 4.0 mmoL/L (3.5-5.1); Sodium 132 mmol/L (136-145); Total Protein,Serum 5.7 g/dl (6.3-8.2)
[2025-05-06 06:36] LABS: Hematocrit 30.0 % (37.0-47.0); Hemoglobin 10.4 g/dL (12.2-16.2); Immature Granulocytes % 0.3 %; Mean Corpuscular HGB Conc 34.7 g/dL (31.8-35.4); Mean Corpuscular Hemoglobin 32.6 pg (27.0-31.2); Mean Corpuscular Volume 94.0 fl (81-99); Nucleated Red Blood Cells % 0 %; Platelet Count 146 K/mm3 (142-424); Red Blood Count 3.19 M/mm3 (4.20-5.40); Red Cell Distribution Width-SD 42.3 fL; White Blood Count 8.0 K/mm3 (4.8-10.8)
[2025-05-06 06:40] LABS: Activated Partial Thrombo Time 24.5 seconds (22.8-30.6); INR 0.87 (0.9-1.1); Prothrombin Time 9.8 seconds (10.1-12.5)
[2025-05-06 07:47] LABS: Alanine Aminotransferase 10 U/L (12-78); Anion Gap 6.1 mEq/L (5-15); Aspartate Amino Transferase 22 U/L (14-36); Blood Urea Nitrogen 5 mg/dl (7-17); Calcium 6.6 mg/dl (8.4-10.2); Carbon Dioxide 25 mmol/L (22.0-30.0); Chloride 105 mmol/L (98-107); Creatinine Clearance Estimated 137 mL/min (50-200); Creatinine,Serum 0.60 mg/dl (0.52-1.04); Estimated Glomerular Filt Rate 119 ml/min (>60); GFR (African American) 144 ML/MIN (>60); Glucose 76 mg/dl (74-100); Potassium 4.1 mmoL/L (3.5-5.1); Sodium 132 mmol/L (136-145); Uric Acid 3.2 mg/dl (2.5-6.2)
[2025-05-06 07:53] LABS: Fibrinogen 442 mg/dL (229.9-363.5)
--- NOTE | 2025-05-06 09:49 | EXP.ACUTE.PN ---
Subjective *Date: 05/06/25 *Time: 09:49 Interval history: She is doing well this morning. She is eating and drinking and ambulating. She is bottlefeeding. Her lochia is normal. We are having some difficulty controlling her pain because of her methadone use. Otherwise she is doing well. Hemoglobin is stable. Her blood pressures have been elevated overnight and she is on magnesium sulfate 2 g an hour. She takes labetalol 300 mg 3 times daily as well as 30 mg XL of nifedipine daily. Her blood pressure was 139 over 85 minutes ago. Medical Exam Vital signs and Labs for Last 24 Hours: Vital Signs Temp Pulse Pulse Resp BP BP Pulse Ox 05/06/25 06:10 66 14 156/96 H 99 05/06/25 05:11 69 14 147/90 H 98 05/06/25 04:26 63 14 142/92 H 99 05/06/25 03:28 98.3 F 67 14 133/89 99 05/06/25 02:25 68 12 141/78 H 98 05/06/25 01:30 150/98 H 05/06/25 01:28 66 14 150/98 H 99 05/06/25 01:00 162/90 H 05/06/25 00:32 98.1 F 67 16 166/104 H 99 05/05/25 23:30 66 14 142/79 H 99 05/05/25 22:15 72 14 136/60 98 05/05/25 21:15 65 12 150/90 H 98 05/05/25 20:54 153/92 H 05/05/25 20:24 161/100 H 05/05/25 20:02 164/102 H 05/05/25 20:00 65 14 163/97 H 100 05/05/25 19:32 174/98 H 05/05/25 19:17 97.9 F 67 12 171/103 H 100 05/05/25 17:17 65 15 149/88 H 98 05/05/25 17:05 98.5 F 64 18 157/93 H 99 05/05/25 16:55 98.5 F 68 18 145/88 H 99 05/05/25 16:47 98.7 F 75 16 146/104 H 05/05/25 16:45 98.5 F 69 18 143/89 H 98 05/05/25 16:35 98.5 F 73 18 146/104 H 98 05/05/25 14:21 63 14 139/82 98 05/05/25 14:06 66 12 119/75 98 05/05/25 13:17 65 12 133/73 98 05/05/25 12:36 97.4 F L 70 16 122/76 98 05/05/25 11:20 97.6 F 58 L 16 125/73 98 05/05/25 10:21 62 15 112/66 99 O2 Del Method 05/06/25 06:10 Room Air 05/06/25 05:11 Room Air 05/06/25 04:26 Room Air 05/06/25 03:28 Room Air 05/06/25 02:25 Room Air 05/06/25 01:30 05/06/25 01:28 Room Air 05/06/25 01:00 05/06/25 00:32 Room Air 05/05/25 23:30 Room Air 05/05/25 22:15 Room Air 05/05/25 21:15 Room Air 05/05/25 20:54 05/05/25 20:24 05/05/25 20:02 05/05/25 20:00 Room Air 05/05/25 19:32 05/05/25 19:17 Room Air 05/05/25 17:17 Room Air 05/05/25 17:05 Room Air 05/05/25 16:55 Room Air 05/05/25 16:47 05/05/25 16:45 Room Air 05/05/25 16:35 Room Air 05/05/25 14:21 Room Air 05/05/25 14:06 Room Air 05/05/25 13:17 Room Air 05/05/25 12:36 Room Air 05/05/25 11:20 05/05/25 10:21 Room Air Intake and Output 05/05/25 05/06/25 05/06/25 19:59 03:59 11:59 Intake Total 3625.1 / 5124.267 437.5 / 5124.267 1061.667 / 5124.267 Output Total 725 / 1900 550 / 1900 625 / 1900 Balance 2900.1 / 3224.267 -112.5 / 3224.267 436.667 / 3224.267 Intake: Intake, Total IV Amount 3625.1 / 5124.267 437.5 / 5124.267 1061.667 / 5124.267 Acetaminophen 1,000 mg In 100 100 / 200 100 / 200 ml @ 400 mls/hr IV Q6H [facility] Rx#: [id number] Azithromycin 500 mg In 0.9 % 250 / 250 Sodium Chloride 250 ml @ 250 mls/hr IV ONCE ONE Rx#:[id number] Cefazolin Sodium 2 gm In 0.9 % 100 / 100 Sodium Chloride 100 ml @ 200 mls/hr IV PREOP ONE Rx#: [id number] Cefazolin Sodium 2 gm In 0.9 % 100 / 100 Sodium Chloride 100 ml @ 200 mls/hr IV Q8H [facility] Rx#:[id number] Lactated Ringers 1000ML 1,000 1000 / 1000 ml @ 75 mls/hr IV .[id number] ONE Rx#:[id number] Lactated Ringers 1000ML 1,000 762.5 / 1000.0 237.5 / 1000.0 ml @ 75 mls/hr IV .[id number] [facility] Rx#:[id number] Lactated Ringers 1000ML 1,000 1000 / 1000 ml @ 999 mls/hr IV .[id number] [facility] Rx#:[id number] Magnesium Sulfate in Water 20 461.667 / 461.667 gm In 500 ml @ 1 GM/HR 25 mls/ hr IV .Q20H [facility] Rx#:[id number] Oxytocin/Ringers Lactate 30 12.6 / 12.6 units In 500 ml @ 3 mls/hr IV . Q25H [facility] Rx#:[id number] Oxytocin/Ringers Lactate 30 500 / 500 units In 500 ml @ 40 mls/hr IV .[id number] [facility] Rx#:[id number] Output: Output, Urine Amount (Catheter) 725 / 1900 550 / 1900 625 / 1900 Ceballos 725 / 1900 550 / 1900 625 / 1900 Laboratory Results - last 24 hr 05/04/25 12:12: Hep Bs Antigen Negative, Blood Type A Positive, Blood Type Confirm A Positive, Antibody Screen Negative, Crossmatch (AHG) See Detail 05/05/25 13:20: Magnesium 6.1 H 05/06/25 05:28: WBC 8.0, RBC 3.19 L, Hgb 10.4 L, Hct 30.0 L, MCV 94.0, MCH 32.6 H, MCHC 34.7, RDW 12.2, Plt Count 146, MPV 10.8 H, Neut % (Auto) 71.1, Lymph % (Auto) 22.1, [place] % (Auto) 6.3, Eos % (Auto) 0.1, Baso % (Auto) 0.1, Neut # (Auto) 5.7, Lymph # (Auto) 1.8, [place] # (Auto) 0.5, Eos # (Auto) 0.0, Baso # (Auto) 0.0, PT 9.8 L, INR 0.87 L, APTT 24.5, Fibrinogen 442 H, Sodium 132 L 05/06/25 05:28: Sodium 132 L, Potassium 4.1 05/06/25 05:28: Potassium 4.0, Chloride 105 05/06/25 05:28: Chloride 105, Carbon Dioxide 25 05/06/25 05:28: Carbon Dioxide 24, Anion Gap 6.1 05/06/25 05:28: Anion Gap 7.0, BUN 5 L D 05/06/25 05:28: BUN 5 L, Creatinine 0.60 05/06/25 05:28: Creatinine 0.60, Estimated Creat Clear 137 05/06/25 05:28: Estimated Creat Clear 137, Estimated GFR 119 05/06/25 05:28: Estimated GFR 119, Est GFR ( Amer) 144 05/06/25 05:28: Est GFR ( Amer) 144, Glucose 76 05/06/25 05:28: Glucose 85, Uric Acid 3.2, Calcium 6.6 L 05/06/25 05:28: Calcium 6.7 L, Magnesium 4.7 H D, Total Bilirubin 0.2, AST 22 05/06/25 05:28: AST 25, ALT 10 L 05/06/25 05:28: ALT 11 L, Alkaline Phosphatase 120, Total Protein 5.7 L, Albumin 2.8 L, Globulin 2.9, Albumin/Globulin Ratio 1.0 L I & O for Labs for Last 24 Hours: Intake & Output 05/03/25 05/04/25 05/05/25 05/06/25 11:59 11:59 11:59 11:59 Intake Total 2866.850 / 2866.850 5124.267 / 5124.267 Output Total 3050 / 3050 1900 / 1900 Balance -183.150 / -260.216 1495.267 / 3224.267 Weight 137 lb Head: Present normocephalic ENT: Present normal exam Neck: Present normal inspection Respiratory: Present normal respiratory effort; Absent accessory muscle use Assessment and Plan *Assessment and plan (1) affected by intrauterine growth restriction (IUGR): Status: Acute Category: Medical Code(s): O36.5990 - Maternal care for other known or suspected poor growth, unspecified trimester, not applicable or unspecified (2) Gestational hypertension: Status: Acute Qualifiers: Trimester: third trimester Qualified Code(s): O13.3 - Gestational [-induced] hypertension without significant proteinuria, third trimester Category: Medical Code(s): O13.9 - Gestational [-induced] hypertension without significant proteinuria, unspecified trimester (3) Methadone maintenance treatment affecting : Status: Acute Qualifiers: Trimester: second trimester Qualified Code(s): O99.322 - Drug use complicating , second trimester; F11.20 - Opioid dependence, uncomplicated Category: Medical Code(s): O99.320 - Drug use complicating , unspecified trimester; F11.20 - Opioid dependence, uncomplicated (4) Tobacco use affecting , antepartum: Status: Acute Category: Medical Code(s): O99.330 - Smoking (tobacco) complicating , unspecified trimester (5) pelvic disproportion delivered: Status: Acute Category: Medical Code(s): O33.9 - Maternal care for disproportion, unspecified (6) delivery delivered: Status: Acute Category: Medical Code(s): O82 - Encounter for delivery without indication Plan 1. She is doing well this morning. Her blood pressure is reasonably well-controlled and she is on magnesium sulfate at 2 g an hour. 2. Will plan to stop the magnesium sulfate at 4 PM today. 3. We will continue with her blood pressure medications for now. 4. She has started back on her methadone and feels better. 5. We will plan to send her home in 48 hours.
--- NOTE | 2025-05-06 10:40 | P.PNANES_ITS ---
[facility] Anesthesia Record Part II Anesthesia Record Part II Discharge Time: 15:05 Destination: Obstetric PACU nurse assessment reviewed?: Yes Patient Condition:: Good Anesthesia Complications:: None Swallowing reflex intact?: Yes Airway Patency: Patent Cyanosis?: No Blood Pressure: 157/93 SaO2: 99 Respiratory Rate: 18 Pulse Rate: 64 Temperature: 98.5 F Mental Status: Alert & Oriented Pain level:: 0 Nausea and/or vomitting:: None Intake, IV Amount: 0 Hydration: Adequate
--- NOTE | 2025-05-06 11:19 | SW/DCPLANNER ---
Addendum entered by Ivis Azevedo 05/13/25 14:23: Infant cord screen is positive for THC and methadone. I have emailed cord screen results to Maye sneed/ [facility]. Addendum entered by Ivis Azevedo 05/09/25 13:24: Director [employer] (Maye) has requested a follow up once infant cord screen is resulted. Email: [email or web address] Addendum entered by Ivis Azevedo 05/06/25 15:51: This case does NOT meet criteria for investigation. Original Note: I received a referral for this patient regarding positive THC on admission. Patient tested positive for THC and methadone on the following dates: 11/24/24, 03/31/25 and admission 05/04/25. 's UDS was negative on 05/05/25. Patient admits to THC use during . Patient is established w/ [facility] for methadone and has been established for 8 years. Infant male (Mikhail Bauer) was born 05/05/25. 's father (Brayden Bauer 12/08/94) was present at the time of my visit. Patient will reside at [address] [place] [address]. Patient's contact number is [phone]. Patient will contact [facility] regarding program. PED MD will be Dr Romero and patient stated that she will have transportation to all follow up appointments. Patient has the following items at home: crib, car seat, clothing, diapers and will be bottle feeding. Per OB staff patient and father are appropriate w/ infant. Patient and infant are expected to discharge Tuesday 05/08 pending no setbacks. Infant is scoring at this time: 5 due to tremors and increased tone. Due to THC use during w/ methadone and infant scoring I did make a report to [facility]. WEB ID#[id number]. CM will continue to follow up.
[2025-05-06] MEDS: ACETAMINOPHEN 500MG TAB 1000 MG PO ×2 (15:59→22:16)
[2025-05-06] MEDS: IBUPROFEN 400 MG TABLET 800 MG PO (15:59)
[2025-05-06] MEDS: SIMETHICONE 80MG CHEWABLE TABLET 160 MG PO (22:21)
[2025-05-07] MEDS: IBUPROFEN 400 MG TABLET 800 MG PO ×3 (00:14→17:19)
[2025-05-07] MEDS: SENNA 8.6MG TABLET 8.6 MG PO ×2 (00:19→08:44)
[2025-05-07 00:20] VITALS: BP 150/88; PULSE 70
[2025-05-07] MEDS: ACETAMINOPHEN 500MG TAB 1000 MG PO ×4 (04:57→22:36)
[2025-05-07] MEDS: LABETALOL 100MG TABLET 300 MG PO ×3 (04:57→21:00)
[2025-05-07 05:00] VITALS: BP 168/96; PULSE 73; RESP 16; TEMP 36.9; O2SAT 100
[2025-05-07 05:20] VITALS: BP 142/90
[2025-05-07] MEDS: SIMETHICONE 80MG CHEWABLE TABLET 160 MG PO (08:43)
[2025-05-07] MEDS: LABETALOL 5MG/ML 20ML MDV 20 MG IV (09:45)
--- NOTE | 2025-05-07 10:10 | EXP.ACUTE.PN ---
Subjective *Date: 05/07/25 *Time: 10:10 Interval history: She is doing well this morning although her blood pressure spikes when she is up moving around. It was in the 170/90 range. She is otherwise asymptomatic and denies headache or scotomata. We stopped her magnesium sulfate yesterday afternoon after 24 hours. Her lochia is normal. She is bottlefeeding. We have increased her dosage of nifedipine to 30 mg XL twice daily. We did give her 1 dose of labetalol IV this morning. Medical Exam Vital signs and Labs for Last 24 Hours: Vital Signs Temp Pulse Resp BP Pulse Ox O2 Del Method 05/07/25 05:20 142/90 H 05/07/25 05:00 98.4 F 73 16 168/96 H 100 Room Air 05/07/25 00:20 70 150/88 H 05/06/25 20:00 98.2 F 71 16 129/78 99 Room Air 05/06/25 13:48 70 17 129/74 05/06/25 12:47 17 132/73 05/06/25 12:31 56 L 18 143/79 H 05/06/25 11:31 56 L 17 125/75 05/06/25 10:32 74 18 136/74 Intake and Output 05/06/25 05/07/25 05/07/25 19:59 03:59 11:59 Intake Total 1299.667 / 1299.667 Output Total 800 / 800 Balance 499.667 / 499.667 Intake: Intake, Total IV Amount 1299.667 / 1299.667 Lactated Ringers 1000ML 1,000 983 / 983 ml @ 75 mls/hr IV .[id number] [facility] Rx#:[id number] Magnesium Sulfate in Water 20 316.667 / 316.667 gm In 500 ml @ 2 GM/HR 50 mls/ hr IV .Q10H [facility] Rx#:[id number] Output: Output, Urine Amount 800 / 800 I & O for Labs for Last 24 Hours: Intake & Output 05/04/25 05/05/25 05/06/25 05/07/25 11:59 11:59 11:59 11:59 Intake Total 2866.850 / 2866.850 5374.267 / 5374.267 1299.667 / 1299.667 Output Total 3050 / 3050 2600 / 2600 800 / 800 Balance -183.150 / -411.830 2931.267 / 2774.267 499.667 / 499.667 Weight 137 lb Microbiology Reports for the Last 24 Hours: Microbiology 05/04/25 11:15 Vaginal Group B Streptococcus Screen ([facility]) - Final Negative for Group B Streptococcus. Head: Present normocephalic Neck: Present normal inspection Respiratory: Present normal respiratory effort; Absent accessory muscle use Assessment and Plan *Assessment and plan (1) delivery delivered: Status: Acute Category: Medical Code(s): O82 - Encounter for delivery without indication (2) pelvic disproportion delivered: Status: Acute Category: Medical Code(s): O33.9 - Maternal care for disproportion, unspecified (3) affected by intrauterine growth restriction (IUGR): Status: Acute Category: Medical Code(s): O36.5990 - Maternal care for other known or suspected poor growth, unspecified trimester, not applicable or unspecified (4) Gestational hypertension: Status: Acute Qualifiers: Trimester: third trimester Qualified Code(s): O13.3 - Gestational [-induced] hypertension without significant proteinuria, third trimester Category: Medical Code(s): O13.9 - Gestational [-induced] hypertension without significant proteinuria, unspecified trimester (5) Methadone maintenance treatment affecting : Status: Acute Qualifiers: Trimester: second trimester Qualified Code(s): O99.322 - Drug use complicating , second trimester; F11.20 - Opioid dependence, uncomplicated Category: Medical Code(s): O99.320 - Drug use complicating , unspecified trimester; F11.20 - Opioid dependence, uncomplicated Plan She has had some spike in her blood pressure today and as result of that we have increased her nifedipine to 30 mg XL twice daily. We have given her 1 dose of labetalol 20 mg IV. She continues with labetalol 300 mg every 8 hours. Given the fact that her blood pressure is still spiking we will continue close observation for now. If she does well over the next 24 hours we will consider sending her home.
[2025-05-07 10:15] VITALS: BP 124/67
[2025-05-07] MEDS: HYDRALAZINE 20MG/ML VIAL 10 MG IV (12:00)
[2025-05-07] MEDS: PRENATAL MULTIVITAMIN W/IRON 1 EACH PO (17:19)
[2025-05-07 20:08] VITALS: BP 159/80; PULSE 65; RESP 16; TEMP 36.9; O2SAT 100
[2025-05-08] MEDS: IBUPROFEN 400 MG TABLET 800 MG PO ×2 (00:05→08:26)
[2025-05-08 00:15] VITALS: BP 123/76; PULSE 75
[2025-05-08 04:11] VITALS: BP 155/92; PULSE 85; RESP 17; TEMP 36.9; O2SAT 99
[2025-05-08] MEDS: ACETAMINOPHEN 500MG TAB 1000 MG PO (04:50)
[2025-05-08] MEDS: LABETALOL 100MG TABLET 300 MG PO (04:50)
--- NOTE | 2025-05-08 09:39 | EXP.DC.SUM ---
General Admission date:: 05/04/25 Discharge date: 05/08/25 HPI HPI HPI: Mrs Ivis Bauer is a 29 yo at 36w0d who presents to [facility] from the office for severe range BP in the office, 186/108 followed by 182/102. She admits to intermittent headaches. Denies vision changes and RUQ pain. No headache today. She has had good care. complicated by tobacco use and methadone maintenance treatment. History of IV drug use. Baby is active. Denies contractions, vaginal bleeding and leakage of fluid. Hospital Course Hospital Course Hospital Course: She was initially started on Cytotec and did not progress. She was started on IV oxytocin and the baby was not tolerating labor. She did not change her cervix so as a result of the nonreassuring heart rate tracing and failure to progress she was taken for a primary lower segment transverse section. Her blood pressure was also elevated. She delivered a liveborn male child at 1540 1 in the afternoon of May 05, 2025. Baby weighed 4 pounds 13 ounces and was 17 inches long. He had Apgars of 8 at 1 minute and 9 at 5 minutes. She has done well postoperatively and has remained afebrile throughout her hospitalization. We initially had some problem with pain management since she has been taking methadone. She is now doing well prior to discharge. Her blood pressure was elevated and she received IV magnesium sulfate for 24 hours. After this she continued to have an increase in her blood pressure and she did require an increase to 30 XL mg twice daily of nifedipine and 300 mg 3 times daily of labetalol. Since then her blood pressure has stabilized. It remains in the 150/80 range. She denies headache, scotomata or epigastric pain. She will continue these medications at home. She has a positive blood, she is rubella immune and her group B streptococcus status was unknown. She will be discharged home today to follow-up with me in the office in 2 to 3 days time. She will continue with her blood pressure medicines which include labetalol 300 mg 3 times daily and nifedipine 30 mg XL twice daily. She will continue with vitamins and iron. She was given a prescription for iron tablets as well as a prescription for ibuprofen. She was given the usual instructions with respect to limiting her activity, driving and sexual activity. She was given instructions with respect to wound care. Her condition on discharge is stable and improved. Exam Data for Last 24 hours Vital signs and Labs for Last 24 Hours: Temp Pulse Resp BP Pulse Ox O2 Del Method 98.5 F 85 17 155/92 H 99 Room Air 05/08/25 04:11 05/08/25 04:11 05/08/25 04:11 05/08/25 04:11 05/08/25 04:11 05/08/25 04:11 Laboratory Results - last 24 hr 05/04/25 12:12: Crossmatch (AHG) See Detail I & O for Last 24 hours: Intake & Output 05/05/25 05/06/25 05/07/25 05/08/25 11:59 11:59 11:59 11:59 Intake Total 2866.850 / 2866.850 5374.267 / 5374.267 1299.667 / 1299.667 Output Total 3050 / 3050 2600 / 2600 800 / 800 Balance -183.150 / -469.889 1120.267 / 2774.267 499.667 / 499.667 Weight 137 lb Constitutional Constitutional: no acute distress *Routine HEENT Exam Head: Present normocephalic *Routine Respiratory Exam Respiratory: Present normal respiratory effort; Absent accessory muscle use *Routine Abdominal Exam Abdominal: Present soft and normoactive bowel sounds; Absent tenderness Comments: Her incision is clean and dry. Results Data Completed and Pending Labs on day of discharge: Labs from last 24 hours 05/04/25 12:12 Crossmatch (AHG) See Detail DS: Diagnosis Discharge Diagnosis (1) delivery delivered: Status: Acute Code(s): O82 - Encounter for delivery without indication (2) pelvic disproportion delivered: Status: Acute Code(s): O33.9 - Maternal care for disproportion, unspecified (3) affected by intrauterine growth restriction (IUGR): Status: Acute Code(s): O36.5990 - Maternal care for other known or suspected poor growth, unspecified trimester, not applicable or unspecified (4) Gestational hypertension: Status: Acute Code(s): O13.9 - Gestational [-induced] hypertension without significant proteinuria, unspecified trimester Qualifiers: Trimester: third trimester Qualified Code(s): O13.3 - Gestational [-induced] hypertension without significant proteinuria, third trimester (5) Methadone maintenance treatment affecting : Status: Acute Code(s): O99.320 - Drug use complicating , unspecified trimester; F11.20 - Opioid dependence, uncomplicated Qualifiers: Trimester: second trimester Qualified Code(s): O99.322 - Drug use complicating , second trimester; F11.20 - Opioid dependence, uncomplicated Meds Home Medications and Allergies Home Medications ?Medication ?Instructions ?Recorded ?Confirmed ?Type methadone 10 mg/mL oral concentrate 32.5 mg PO DAILY 11/22/24 05/04/25 History vits no.126-ferrous fum 1 tab PO DAILY 11/22/24 05/04/25 History 28 mg iron-folic acid 800 mcg tablet (Classic ) ondansetron 4 mg disintegrating 4 mg PO Q8H PRN nausea and 04/25/25 05/04/25 Rx tablet vomiting #30 tabs ferrous sulfate 325 mg (65 mg 325 mg PO DAILY #30 tabs 05/08/25 Rx iron) tablet (Iron (ferrous sulfate)) ibuprofen 400 mg tablet 400 mg PO Q4HP PRN Moderate Pain 05/08/25 Rx #40 tabs labetalol 300 mg tablet 300 mg PO TID #90 tabs 05/08/25 Rx nifedipine 30 mg tablet,extended 30 mg PO BID #60 tabs 05/08/25 Rx release New Prescriptions to Start Prescriptions: ferrous sulfate [Iron (ferrous sulfate)] [place] ibuprofen [place] labetalol [place] nifedipine [place] Allergies Allergy/AdvReac Type Severity Reaction Status Date / Time No Known Allergies Allergy Verified 05/04/25 11:07 Discharge Plan Disposition Patient Disposition: Home, Self-Care Discharge Order Discharge Orders: Discharge Order (Routine); Ordered 05/08/25 Ordered By: [place] Follow up Plan Prescriptions/Medication Reconciliation: New ferrous sulfate [Iron (ferrous sulfate)] 325 mg (65 mg iron) Tablet 325 mg PO DAILY Qty: 30 2RF ibuprofen 400 mg tablet 400 mg PO Q4HP PRN (Reason: Moderate Pain) Qty: 40 0RF labetalol 300 mg tablet 300 mg PO TID Qty: 90 1RF nifedipine 30 mg tablet extended release 30 mg PO BID Qty: 60 1RF Continued Classic 28 mg iron- 800 mcg tablet 1 tab PO DAILY methadone 10 mg/mL concentrate 32.5 mg PO DAILY Rx Instructions: last refill 04/21/25 ondansetron 4 mg tablet,disintegrating 4 mg PO Q8H PRN (Reason: nausea and vomiting) Qty: 30 1RF Problem Reconciliation Problems Reviewed?: Yes Patient Discharge Instructions ACTIVITY: No heavy lifting DIET: continue same diet Print Language: St Helenian Providers Primary Care Provider: Mecca Lam Admit Provider: Cally Martin Attending Provider: Cally Martin
[2025-05-16 07:29] VITALS: BP 157/93; PULSE 64; RESP 18; TEMP 36.9; O2SAT 99
== END 2025-05-08 11:39 | disposition home or self-care (01) | DRG 787 ==
LOC: OBOUT 12:23 → OB 12:23
PROVIDERS: Admitting Provider Obstetrics & Gynecology; PCP Nurse Practitioner Family; Visit Provider Obstetrics & Gynecology
PROC: 10D00Z1 Extraction of Products of Conception, Low, Open Approach (ICD-10-PCS; CPT 59514; principal; 2025-05-05 15:00)
DX: O13.4 Gestational [pregnancy-induced] hypertension without significant proteinuria, complicating childbirth (principal); F11.20 Opioid dependence, uncomplicated; O76 Abnormality in fetal heart rate and rhythm complicating labor and delivery; Z3A.36 36 weeks gestation of pregnancy; Z37.0 Single live birth; O36.5930 Maternal care for other known or suspected poor fetal growth, third trimester, not applicable or unspecified; O33.9 Maternal care for disproportion, unspecified; O99.324 Drug use complicating childbirth; O99.334 Smoking (tobacco) complicating childbirth; F17.200 Nicotine dependence, unspecified, uncomplicated; O69.81X0 Labor and delivery complicated by cord around neck, without compression, not applicable or unspecified; F12.90 Cannabis use, unspecified, uncomplicated; O61.0 Failed medical induction of labor; Z23 Encounter for immunization
CPT/HCPCS: 36415; 51702; 59025; 76816; 76819; 80048; 80053; 80307; 82570; 83735; 84156; 84450; 84460; 84550; 85025; 85384; 85610; 85730; 86403; 86592; 86803; 86850; 87340; 87389; 94761; 99212; G0463; J0131; J0290; J0360; J0456; J0665; J0666; J1885; J1920; J2003; J2004; J2250; J2270; J2405; J2590; J2704; J2795; J3010; J3475; J7050; J7120; J7121

== ENCOUNTER 2025-06-14 11:00 | Outpatient (CLI) | payer BC, SELFPAY ==
--- OUTSIDE RECORDS SUMMARY | 2025-06-16 08:49 | XMS_ITS | Encounter Summary ---
Author Organization [facility] Address [address] [place] [address] Care Team Providers Care Wind Projects Supervisor Name Role Phone Mecca Lam APRN Primary Care Provider [phone] Encounter Details Date Type Department Care Team (Late st Contact Info) Description 10/12/2024 Outside Procedure External Location [address] [place] [address] Provider, [facility] [place] Social History Tobacco Use Types Packs/Day Years Used Date Smoking Tobacco: Every Day Cigarettes 0.5 12.8 Started: 09/01/2012 Smokeless Tobacco: Never Alcohol Use [...] place to sleep or slept in a fci (including now)? No 10/29/2023 Housing Stability Vital Sign Answer Wil e Recorded In the last 12 months, was t here a time when you were not able to pay the mortgage or rent on time? No 09/06/2024 In the past 12 months, how m any times have you moved where you were living? 0 09/06/2024 At any time in the past 12 m [facility], were you homeless or living in a fci (including now)? No 09/06/2024 Utilities Answer Date [...] PM EST Narrative 10/12/2024 6:23 [place] [address] Name: JOSE BARGER Exam Date: 10/12/2024 : 1995 Age 29 years Gender: F Physician: FEMI OAKES Facility: [facility] Facility HSV: Outpatient Exam: US TRANSVAGINAL [...] Thank you for referring JOSE BARGER to [facility]. Legally authenticated by TUAN BUTTERFIELD 2024-10-12 17:42:00 Procedure Note Provider, Generic [place] - 10/12/2024 [place] [address] Name: JOSE BARGER Exam Date: 10/12/2024 : 1995 Age 29 years Gender: F Physician: FEMI OAKES Facility: [facility] Facility HSV: Outpatient Exam: US TRANSVAGINAL [...] Thank you for referring JOSE BARGER to [facility]. Legally authenticated by TUAN BUTTERFIELD 2024-10-12 17:42:00 us Generic [place] Provider IMG US PROCEDURES Fi nal Result documented in this encounter Visit Diagnoses Not on filedocumented in this encounter Additional Health Concerns Assessment Noted Time A fall risk assessment has been complete d for the patient 05/24/2024 3:25 PM EDT A Body Mass Index follow-up plan has been documented for the patient 09/15/2024 10:01 AM EST documented as of this encounter Care Teams Wind Projects Supervisor Relationship Specialty Start Date End Date Mecca Lam APRN [address] [place] [address] PCP - General Family Medicine 04/03/21 documented as of this encounter
--- OUTSIDE RECORDS SUMMARY | 2025-06-16 08:49 | XMS_ITS | Clinical Summary ---
Author Organization [facility] Address [address] [place] [address] Care Team Providers Care Manager Front Office Name Role Phone Mecca Lam APRN Primary Care Provider [phone] Allergies Active Allergy Reactions Criticality Noted Date [...] Date Smoking Tobacco: Some Days Cigarettes 0.5 12.8 Started: 09/01/2012 Smokeless Tobacco: Never Tobacco Cessation:Ready [...] place to sleep or slept in a jail (including now)? No 10/29/2023 PHQ-9 Answer Date [...] were you homeless or living in a jail (including now)? No 09/06/2024 Utilities Answer Date [...] Vaccines (1 - 3-dose SCDM series) 2023 [facility]- SDOH Screenings 03/06/2025 [facility]-Adult SDOH Screenings 03/06/2025 09/06/2024 [id number] Vaccine ( - season) 2025 [facility]-Influenza Vaccine (#1) 2025 [facility]-Depression Screening 11/29/2025 11/29/2024, 11/01 [facility]-Zoster Vaccines [...] on patient's age to complete this topic [facility]-RSV Vaccine: 60+ Years or (No Doses Required) Completed [facility]-Rotavirus Vaccines Aged Out No lo nger [...] Antibody/Antigen Screen (10/18/2024 12:08 PM EST) Pathologist [facility] HIV 1 & 2 Antibody/Antigen Screen Non Reactive Non Reactive 10/18/2024 6:39 PM EST [facility] Comment:Screening for HIV 1 & 2 antibodies, and P24 antigen is NONREACTIVE. No confirmatory testing is required. Blood Venous blood specimen / Unknown Venipuncture / Unknown 10/18/2024 12:08 PM EST 10/18/2024 5:51 PM EST us Glenn Yarbrough MD LAB BLOOD ORDERABLES Final Resu lt Performing Organization Address City/[facility] Co de Phone Number [facility] [address] [place] [address] * Hepatitis C Antibody (10/18/2024 12:08 PM EST) Pathologist [facility] Hepatitis C Antibody Negative Negative 10/18/2024 6:34 PM EST [facility] Blood Venous blood specimen / Unknown Venipuncture / Unknown 10/18/2024 12:08 PM EST 10/18/2024 5:51 PM EST us Glenn Yarbrough MD LAB BLOOD ORDERABLES Final Resu lt [facility] [address] [place] [address] * Hemoglobin A1c (01/14/2023 11:11 AM EDT) Pathologist [facility] Hemoglobin A1c 5.5 <5.7 % 01/14/2023 2:08 PM EDT [facility] Blood Venous blood specimen [...] Adults <6.0% Children and Adolescents <7.5% Source: [place] [employer]. Standards of medical care in diabetes,2017. Diabetes Care.2017:40 (suppl 1):S1-S135. HbA1c assay performed by an ion-exchange chromatography method that is certified traceable to the DCCT. us Doris Aleman RN LAB BLOOD ORDERABLES Final [facility] [address] [place] [phone] from Last 3 Months or Most Recently Relevant to Health Maintenance Additional Health Concerns Active Problems Noted Date Diagnosed Date CPM S24 PP LABOR (OBSTETRICS) 11/03/2024 Insurance ANTHEM Care Teams Manager Front Office Relationship Specialty Start Date End Date Mecca Lam APRN [address] [place] [address] PCP - General Family Medicine 04/03/21
--- OUTSIDE RECORDS SUMMARY | 2025-06-16 08:49 | XMS_ITS | Clinical Summary ---
Author Organization [facility] Address [address] [place] [address] Care Team Providers Care Front Tender Name Role Phone Francie Fisher APRN Primary Care Provider [phone] Social History Tobacco Use Types Packs/Day Years [...] 1996 TDAP/TD VACCINES (1 - Tdap) 2015 INFLUENZA VACCINE 04/01/2025 Pneumococcal Vaccine 0-49 Aged Out No longer eligible based on patient's age to complete this topic Care Teams Front Tender Relationship Specialty Start Date End Date Francie Fisher APRN [address] [place] [address] [place] [address] PCP - General Family Medicine 12/21/20
== END 2025-06-14 23:59 ==
LOC: LAB.DROPOF 06-16 08:39
PROVIDERS: PCP Obstetrics & Gynecology; Visit Provider Obstetrics & Gynecology
DX: N39.0 Urinary tract infection, site not specified (principal)
CPT/HCPCS: 87086; 87088; 87186

== ENCOUNTER 2025-07-06 16:32 | Emergency (ER) | payer BC, SELFPAY ==
[2025-07-06] VITALS (11 sets, daily range): BP systolic 101–125; BP diastolic 68–83; PULSE 66–90; RESP 10–22; TEMP 36.6–36.8; O2SAT 96–99; BMI 20.5
--- NOTE | 2025-07-06 16:35 | ECG_ITS ---
APPROVED REPORT Exam: Resting ECG HR:85 bpm ECG Measurements Heart Rate 85 AXES OH 142 P 74 QRSd 98 QRS 79 QT 396 T 12 QTc 439 Conclusion SINUS RHYTHM INCOMPLETE RIGHT BUNDLE BRANCH BLOCK [90+ ms QRS DURATION, TERMINAL R IN V1/V2, 40+ ms S IN I/aVL/V4/V5/V6] NONSPECIFIC ST & T-WAVE ABNORMALITY BORDERLINE ECG UNCONFIRMED REPORT Normal sinus rhythm. No ST elevation or depression. Isolated T wave inversions in lead V3. QTc normal at 439 Electronically signed by : MEJIA SALAS, 07/07/2025 20:11:20
--- NOTE | 2025-07-06 16:52 | HMH.EDCP ---
Discharge Plan Disposition Patient Disposition: Home, Self-Care Prescriptions Prescriptions: No Action Classic 28 mg iron- 800 mcg tablet 1 tab PO DAILY methadone 10 mg/mL concentrate 32.5 mg PO DAILY Rx Instructions: last refill 04/21/25 labetalol 300 mg tablet 300 mg PO TID Qty: 90 1RF ferrous sulfate [Iron (ferrous sulfate)] 325 mg (65 mg iron) Tablet 325 mg PO DAILY Qty: 30 2RF ibuprofen 400 mg tablet 400 mg PO Q4HP PRN (Reason: Moderate Pain) Qty: 40 0RF Referrals Follow up/Referrals: Cally Martin DO [Primary Care Provider, DIORAMA MODEL MAKER] - See instructions Activity Restrictions/Add. Instructions Additional Instructions/Restrictions: I encourage you to follow-up with a zipper measurer as discussed. If you develop any new or worsening symptoms, or if you become concerned for your help for any reason, return to the emergency department for evaluation. Clinical Impressions Clinical Impression: Chest pain Stand Alone Forms Stand Alone Forms: Work/School Release Print Language Print Language: Tajik Discharge ED Provider: Ulises Garcia General Chief Complaint: Chest Pain Stated Complaint: chest pain Time Seen by Provider: 07/06/25 16:48 Mode of Arrival: Ambulatory Source of Information: Patient Description of Symptoms (Recalled from ER Triage Doc. by RN): Pt states she is 8 weeks post and checked her BP on her home cuff and her BP was high on multiple attempts. BP was 161/101. Pt states she began to develop some midsternal chest pain that is now resolved History of Present Illness HPI narrative: Ivis Bauer is a 30y female with a history of gestational hypertension who presents to the emergency department 8 weeks for complaints of chest pain, dizziness and shortness of breath and high blood pressure. Patient states that she was feeling dizzy at home, which is typical for her when her blood pressure rises. She states that she checked it multiple times at home with a wrist monitor and had multiple readings in the 160 systolic range. She stated that it improved some slightly before coming to the ER. She does state that she was prescribed medication for her high blood pressure but rarely takes it because it makes her nauseous. She states that overall, her chest pain and shortness of breath have improved significantly and she is only having mild dizziness and chest pain at this time. She denies any abdominal pain or fevers or cough. Related Data Home Medications ?Medication ?Instructions ?Recorded ?Confirmed methadone 10 mg/mL oral concentrate 32.5 mg PO DAILY 11/22/24 07/07/25 vits no.126-ferrous fum 1 tab PO DAILY 11/22/24 07/07/25 28 mg iron-folic acid 800 mcg tablet (Classic ) Previous Rx's ?Medication ?Instructions ?Recorded ferrous sulfate 325 mg (65 mg 325 mg PO DAILY #30 tabs 05/08/25 iron) tablet (Iron (ferrous sulfate)) ibuprofen 400 mg tablet 400 mg PO Q4HP PRN Moderate Pain 05/08/25 #40 tabs labetalol 300 mg tablet 300 mg PO TID #90 tabs 07/07/25 Allergies Allergy/AdvReac Type Severity Reaction Status Date / Time No Known Allergies Allergy Verified 07/07/25 10:49 [facility] Disclaimer: The information contained in this section may have been updated after the patient was seen, as this information can be updated by other users. Medical History (Updated 07/07/25 @ 11:09 by Chris Sol RN) Abnormal ECG HTN (hypertension) UTI (urinary tract infection) affected by intrauterine growth restriction (IUGR) Gestational hypertension Nausea/vomiting in History of miscarriage Tobacco use affecting , antepartum Methadone maintenance treatment affecting No significant past medical history Surgical History History of Social History Smoking Status: Current every day smoker quit status: considering quitting alcohol intake: never substance use type: other current occupational status: unemployed Travel in the last 8 weeks?: None Other Medical History Have you received the Flu Vaccine for this season: No Have you received the Pneumonia Vaccine: No ROS Obtained: Yes Systems reviewed as appropriate & no additional complaints except as documented Physical Exam General General appearance: alert and in no apparent distress Head Head exam: atraumatic Eye Eye exam: Present normal appearance ENT ENT exam: Present normal external ear exam Neck Neck exam: Present full ROM Chest Chest inspection: Present symmetric chest wall rise Respiratory Respiratory exam: Present normal lung sounds bilaterally; Absent respiratory distress, wheezes or stridor Cardiovascular Cardiovascular exam: Present regular rate and normal rhythm Abdominal Exam Abdominal exam: Present soft; Absent tenderness or guarding Extremities Exam Extremities exam: Present normal inspection Back Exam Back exam: Present normal inspection Neurological Exam Neurological exam: Present alert and oriented X3 Psychiatric Psychiatric exam: Present normal affect Skin Skin exam: Present warm and dry HEART Score HEART Score HEART Score assessment performed?: Yes History (anamnesis): Slightly suspicious ECG: Normal Age: <45 years Risk factors: No known risk factors Troponin: </= normal limit HEART Score: 0 Critical Care Critical Care Time Critical Care Time: No Medical Decision Making Nicho Inquiry Pt receiving controlled substance: No Vital Signs Vital Signs: 07/06/25 16:44 07/06/25 18:00 07/06/25 19:00 Temperature 98.3 F Temperature Source Oral Pulse Rate 73 Pulse Rate [Right] 90 Respiratory Rate 18 10 L Blood Pressure 113/68 101/71 L Blood Pressure [Right Arm] 125/69 Blood Pressure Mean 89 78 Blood Pressure Mean [Right Arm] 87 Blood Pressure Source [Right Arm] Automatic Cuff Blood Pressure Position [Right Arm] Sitting 02 Sat by Pulse Oximetry 99 96 Oxygen Delivery Method Room Air 07/06/25 19:00 07/06/25 19:15 07/06/25 19:30 Temperature Temperature Source Pulse Rate 67 74 79 Pulse Rate [Right] Respiratory Rate 11 L 14 15 Blood Pressure Blood Pressure [Right Arm] Blood Pressure Mean Blood Pressure Mean [Right Arm] Blood Pressure Source [Right Arm] Blood Pressure Position [Right Arm] 02 Sat by Pulse Oximetry 96 97 98 Oxygen Delivery Method 07/06/25 19:30 07/06/25 19:45 07/06/25 20:00 Temperature Temperature Source Pulse Rate 66 69 Pulse Rate [Right] Respiratory Rate 16 10 L Blood Pressure 118/81 Blood Pressure [Right Arm] Blood Pressure Mean 93 Blood Pressure Mean [Right Arm] Blood Pressure Source [Right Arm] Blood Pressure Position [Right Arm] 02 Sat by Pulse Oximetry 98 97 Oxygen Delivery Method 07/06/25 20:00 07/06/25 20:15 07/06/25 20:30 Temperature Temperature Source Pulse Rate Pulse Rate [Right] Respiratory Rate 22 15 Blood Pressure 107/83 L Blood Pressure [Right Arm] Blood Pressure Mean 88 Blood Pressure Mean [Right Arm] Blood Pressure Source [Right Arm] Blood Pressure Position [Right Arm] 02 Sat by Pulse Oximetry Oxygen Delivery Method 07/06/25 20:45 07/06/25 20:56 Temperature 97.9 F Temperature Source Oral Pulse Rate 73 73 Pulse Rate [Right] Respiratory Rate 12 15 Blood Pressure 107/83 L Blood Pressure [Right Arm] Blood Pressure Mean Blood Pressure Mean [Right Arm] Blood Pressure Source [Right Arm] Blood Pressure Position [Right Arm] 02 Sat by Pulse Oximetry 98 Oxygen Delivery Method Room Air Lab Data Labs: Lab Results 07/06/25 17:01: WBC 4.9, RBC 3.78 L, Hgb 11.6 L, Hct 35.5 L, MCV 93.9, MCH 30.7, MCHC 32.7, RDW 13.3, Plt Count 198, MPV 10.2, Neut % (Auto) 37.8, Lymph % (Auto) 52.1 H, [place] % (Auto) 8.1, Eos % (Auto) 1.2, Baso % (Auto) 0.4, Neut # (Auto) 1.9, Lymph # (Auto) 2.6, [place] # (Auto) 0.4, Eos # (Auto) 0.1, Baso # (Auto) 0.0, Sodium 141, Potassium 4.0, Chloride 106, Carbon Dioxide 27, Anion Gap 12.0, BUN 13, Creatinine 0.80, Estimated Creat Clear 89, Estimated GFR 85, Est GFR ( Amer) 103, Glucose 107 H, Calcium 8.8, Total Bilirubin 0.3, AST 24, ALT 12, Alkaline Phosphatase 57, Troponin I < 0.01, NT-Pro-B Natriuret Pep < 20.0, Total Protein 7.3 D, Albumin 4.8, Globulin 2.5, Albumin/Globulin Ratio 1.9 H, TSH 1.72, Free T4 0.99 07/06/25 19:51: Troponin I < 0.01 07/06/25 17:01 07/06/25 17:01 Response Orders (Tests/Meds): ORDERS Category Date Time Status CXR --portable [XR chest portable] Stat Exams 07/06/25 16:53 Completed BNP [NT Pro Brain Natriuretic Pep.] Stat Lab 07/06/25 17:01 Completed CBC w/Auto Diff [Complete Blood Count Auto Diff] Stat Lab 07/06/25 17:01 Completed CMP [Comprehensive Metabolic Panel] Stat Lab 07/06/25 17:01 Completed Free T4 (Free Thyroxine) Stat Lab 07/06/25 17:01 Completed TSH [Thyroid Stimulating Hormone] Stat Lab 07/06/25 17:01 Completed Troponin I Q3H Lab 07/06/25 19:51 Completed Troponin I Stat Lab 07/06/25 17:01 Completed ECG Data Tracing #1: Attestation: I reviewed this ECG and interpreted as documented below: ECG Narrative: Normal sinus rhythm. No ST elevation or depression. QTc 439 MDM Narrative Medical Decision Narrative: Ivis Bauer is a 30y female with a history of gestational hypertension who presents to the emergency department 8 weeks for complaints of chest pain, dizziness and shortness of breath and high blood pressure. Patient states that she was feeling dizzy at home, which is typical for her when her blood pressure rises. She states that she checked it multiple times at home with a wrist monitor and had multiple readings in the 160 systolic range. She stated that it improved some slightly before coming to the ER. She does state that she was prescribed medication for her high blood pressure but rarely takes it because it makes her nauseous. She states that overall, her chest pain and shortness of breath have improved significantly and she is only having mild dizziness and chest pain at this time. She denies any abdominal pain or fevers or cough. On arrival, patient is normotensive, heart rate limits, afebrile, breathing comfortably on room air with appropriate oxygen saturation. Physical exam, as stated above, revealed an overall well-appearing female in no distress. No murmurs or rubs are appreciated. No wheezing, rales or rhonchi. Physical exam is otherwise grossly unremarkable. Differential diagnosis includes, but is not limited to: ACS, metabolic derangement, electrolyte derangement, she is 8 weeks , cardiomyopathy or preeclampsia unlikely, however still within the realm of possibilities. Will obtain EKG, chest x-ray, troponin, TSH/free T4, BNP, CBC with differential, CMP EKG was interpreted by me personally. No evidence of ischemia. See interpretation above. Chest x-ray interpreted by me personally. No focal consolidation, no pneumothorax, no widened mediastinum, no enlargement of the cardiac silhouette. Unremarkable chest x-ray. See radiology report for details. Patient's workup is unremarkable no leukocytosis, electrolytes within normal limits. Troponin negative x 2 less than 0.01. NT proBNP negative at less than 20. TSH and free T4 within normal limits. Patient has remained normotensive throughout her ED visit. Her symptoms have improved. Feel that no additional workup is indicated at this time and that she is appropriate for discharge with follow-up with PCP/DIORAMA MODEL MAKER. Return precautions were given. All questions were answered. She demonstrated understanding and was in agreement this plan. She was then discharged from the emergency department in stable condition. The
--- NOTE | 2025-07-06 16:53 | XR_ITS ---
PROCEDURE INFORMATION: Exam: XR Chest Exam date and time: 07/06/2025 4:54 PM Age: 30 years old Clinical indication: Shortness of breath; Sternal or substernal pain; Additional info: Chest pain, shortness of breath TECHNIQUE: Imaging protocol: Radiologic exam of the chest. Views: 1 view. COMPARISON: No relevant prior studies available. FINDINGS: Lungs: The lungs appear clear. No focal areas of consolidation. Pleural spaces: No pleural effusions. Negative for pneumothorax. Heart/Mediastinum: Cardiac silhouette and pulmonary vasculature are within range of normal. Bones/joints: There is no evidence of acute fracture. There is a minor convex right thoracic scoliosis. IMPRESSION: Negative for an acute cardiopulmonary abnormality.
--- OUTSIDE RECORDS SUMMARY | 2025-07-06 17:00 | XMS_ITS | Clinical Summary ---
Author Organization [facility] Address [address] [place] [address] Care Team Providers Care Court Commissioner Name Role Phone Francie Fisher APRN Primary Care Provider [phone] Social History Tobacco Use Types Packs/Day Years [...] age to complete this topic Care Teams Court Commissioner Relationship Specialty Start Date End Date Francie Fisher APRN [address] [place] [address] [place] [address] PCP - General Family Medicine 12/21/20
--- OUTSIDE RECORDS SUMMARY | 2025-07-06 17:00 | XMS_ITS | Encounter Summary ---
Author Organization [facility] Address [address] [place] [address] Care Team Providers Care Medical Clinic Manager Name Role Phone Mecca Lam APRN Primary Care Provider [phone] Encounter Details Date Type Department Care Team (Late st Contact Info) Description 10/12/2024 Outside Procedure External Location [address] [place] [address] Provider, Satinder [place] Social History Tobacco Use Types Packs/Day Years [...] place to sleep or slept in a nursing home (including now)? No 10/29/2023 Housing Stability Vital Sign Answer Wil e Recorded In the last 12 months, was t here a time when you were not able to pay the mortgage or rent on time? No 09/06/2024 In the past 12 months, how m any times have you moved where you were living? 0 09/06/2024 At any time in the past 12 m [facility], were you homeless or living in a nursing home (including now)? No 09/06/2024 Utilities Answer Date [...] PM EST Narrative 10/12/2024 6:23 [place] [address] Name: JOSE BARGER Exam Date: 10/12/2024 : 1995 Age 29 years Gender: F Physician: FEMI OAKES Facility: [facility] Facility HSV: Outpatient Exam: US TRANSVAGINAL [...] Thank you for referring JOSE BARGER to [facility]. Legally authenticated by TUAN BUTTERFIELD 2024-10-12 17:42:00 Procedure Note Provider, Generic [place] - 10/12/2024 [place] [address] Name: JOSE BARGER Exam Date: 10/12/2024 : 1995 Age 29 years Gender: F Physician: FEMI OAKES Facility: [facility] Facility HSV: Outpatient Exam: US TRANSVAGINAL [...] Thank you for referring JOSE BARGER to [facility]. Legally authenticated by TUAN BUTTERFIELD 2024-10-12 17:42:00 us Generic [place] Provider IMG US PROCEDURES Fi nal Result documented in this encounter Visit Diagnoses Not on filedocumented in this encounter Additional Health Concerns Assessment Noted Time A fall risk assessment has been complete d for the patient 05/24/2024 3:25 PM EDT A Body Mass Index follow-up plan has been documented for the patient 09/15/2024 10:01 AM EST documented as of this encounter Care Teams Medical Clinic Manager Relationship Specialty Start Date End Date Mecca Lam APRN [address] [place] [address] PCP - General Family Medicine 04/03/21 documented as of this encounter
--- OUTSIDE RECORDS SUMMARY | 2025-07-06 17:01 | XMS_ITS | Clinical Summary ---
Author Organization [facility] Address [address] [place] [address] Care Team Providers Care Cleaning Handyman Name Role Phone Mecca Lam APRN Primary Care Provider Allergies Active Allergy Reactions Criticality Noted Date [...] place to sleep or slept in a mcc (including now)? No 10/29/2023 PHQ-9 Answer Date [...] were you homeless or living in a mcc (including now)? No 09/06/2024 Utilities Answer Date [...] Screenings 03/06/2025 [facility]-Adult SDOH Screenings 03/06/2025 09/06/2024 [id number] Vaccine ( - season) 2025 [facility]-Influenza Vaccine [...] Antibody/Antigen Screen (10/18/2024 12:08 PM EST) Pathologist [facility] HIV 1 & 2 Antibody/Antigen Screen Non Reactive Non Reactive 10/18/2024 6:39 PM EST [facility] Comment:Screening for HIV 1 & 2 antibodies, and P24 antigen is NONREACTIVE. No confirmatory testing is required. Blood Venous blood specimen / Unknown Venipuncture / Unknown 10/18/2024 12:08 PM EST 10/18/2024 5:51 PM EST us Glenn Yarbrough MD LAB BLOOD ORDERABLES Final Resu lt Performing Organization Address City/[facility] Co de Phone Number [facility] [address] [place] [address] * Hepatitis C Antibody (10/18/2024 12:08 PM EST) Pathologist [facility] Hepatitis C Antibody Negative Negative 10/18/2024 6:34 PM EST [facility] Blood Venous blood specimen / Unknown Venipuncture / Unknown 10/18/2024 12:08 PM EST 10/18/2024 5:51 PM EST us Glenn Yarbrough MD LAB BLOOD ORDERABLES Final Resu lt [facility] [address] [place] [address] * Hemoglobin A1c (01/14/2023 11:11 AM EDT) Pathologist [facility] Hemoglobin A1c 5.5 <5.7 % 01/14/2023 2:08 PM EDT [facility] Blood Venous blood specimen [...] Adults <6.0% Children and Adolescents <7.5% Source: [place] [employer]. Standards of medical care in diabetes,2017. Diabetes Care.2017:40 (suppl 1):S1-S135. HbA1c assay performed by an ion-exchange chromatography method that is certified traceable to the DCCT. us Doris Aleman APRN LAB BLOOD ORDERABLES Final Res ult [facility] [address] [place] [id number] from Last 3 Months or Most Recently Relevant to Health Maintenance Additional Health Concerns Active Problems Noted Date Diagnosed Date CPM S24 PP LABOR (OBSTETRICS) 11/03/2024 Insurance ANTHEM Care Teams Cleaning Handyman Relationship Specialty Start Date End Date Mecca Lam APRN [facility] [place] [address] [address] PCP - General Family Medicine 04/03/21
[2025-07-06 17:10] LABS: Hematocrit 35.5 % (37.0-47.0); Hemoglobin 11.6 g/dL (12.2-16.2); Immature Granulocytes % 0.4 %; Mean Corpuscular HGB Conc 32.7 g/dL (31.8-35.4); Mean Corpuscular Hemoglobin 30.7 pg (27.0-31.2); Mean Corpuscular Volume 93.9 fl (81-99); Nucleated Red Blood Cells % 0 %; Platelet Count 198 K/mm3 (142-424); Red Blood Count 3.78 M/mm3 (4.20-5.40); Red Cell Distribution Width-SD 45.8 fL; White Blood Count 4.9 K/mm3 (4.8-10.8)
[2025-07-06 18:36] LABS: Chloride 106 mmol/L (98-107); Potassium 4.0 mmoL/L (3.5-5.1); Sodium 141 mmol/L (136-145)
[2025-07-06 18:39] LABS: Alanine Aminotransferase 12 U/L (12-78); Alkaline Phosphatase 57 U/L (38-126); Aspartate Amino Transferase 24 U/L (14-36); Bilirubin,Total 0.3 mg/dl (0.2-1.3); Blood Urea Nitrogen 13 mg/dl (7-17); Calcium 8.8 mg/dl (8.4-10.2); Creatinine Clearance Estimated 89 mL/min (50-200); Creatinine,Serum 0.80 mg/dl (0.52-1.04); Estimated Glomerular Filt Rate 85 ml/min (>60); GFR (African American) 103 ML/MIN (>60); Glucose 107 mg/dl (74-100); Total Protein,Serum 7.3 g/dl (6.3-8.2)
[2025-07-06 18:49] LABS: NT Pro Brain Natriuretic Pep. < 20.0 pg/mL (0-125)
[2025-07-06 19:04] LABS: Troponin I < 0.01 ng/ml (0.00-0.034)
[2025-07-06 19:10] LABS: Thyroid Stimulating Hormone 1.72 uIU/mL (0.465-4.68)
[2025-07-06 19:42] LABS: Albumin Level 4.8 g/dl (3.5-5.0); Albumin/Globulin Ratio 1.9 (1.1-1.8); Anion Gap 12.0 mEq/L (5-15); Carbon Dioxide 27 mmol/L (22.0-30.0); Globulin 2.5 g/dL (1.3-3.2)
[2025-07-06 20:24] LABS: Free T4 (Free Thyroxine) 0.99 ng/dl (0.78-2.19)
[2025-07-06 20:30] LABS: Troponin I < 0.01 ng/ml (0.00-0.034)
== END 2025-07-06 21:00 | disposition home or self-care (01) ==
PROVIDERS: Emergency Provider Student in an Organized Health Care Education/Training Program; PCP Obstetrics & Gynecology
DX: R07.9 Chest pain, unspecified (principal); R06.02 Shortness of breath; R42 Dizziness and giddiness
CPT/HCPCS: 71045; 80053; 83880; 84439; 84443; 84484; 85025; 93005; 99284; 99285

== ENCOUNTER 2025-07-14 11:23 | Outpatient (CLI) | payer BC, SELFPAY ==
--- OUTSIDE RECORDS SUMMARY | 2025-07-14 11:41 | XMS_ITS | Clinical Summary ---
Author Organization [facility] Address [address] [place] [address] Care Team Providers Care Farmworker Bulbs Name Role Phone Francie Fisher APRN Primary Care Provider [phone] Social History Tobacco Use Types Packs/Day Years [...] age to complete this topic Care Teams Farmworker Bulbs Relationship Specialty Start Date End Date Francie Fisher APRN [address] [place] [address] [place] [address] PCP - General Family Medicine 12/21/20
--- OUTSIDE RECORDS SUMMARY | 2025-07-14 11:41 | XMS_ITS | Encounter Summary ---
Author Organization [facility] Address [address] [place] [address] Care Team Providers Care Director Of Research Name Role Phone Mecca Lam APRN Primary Care Provider [phone] Encounter Details Date Type Department Care Team (Late st Contact Info) Description 10/12/2024 Outside Procedure External Location [address] [place] [address] Provider, Satinder [place] Social History Tobacco Use Types Packs/Day Years Used Date Smoking Tobacco: Every Day Cigarettes 0.5 12.9 Started: 09/01/2012 Smokeless Tobacco: Never Alcohol Use [...] place to sleep or slept in a long-term (including now)? No 10/29/2023 Housing Stability Vital Sign Answer Wil e Recorded In the last 12 months, was t here a time when you were not able to pay the mortgage or rent on time? No 09/06/2024 In the past 12 months, how m any times have you moved where you were living? 0 09/06/2024 At any time in the past 12 m [facility], were you homeless or living in a long-term (including now)? No 09/06/2024 Utilities Answer Date [...] PM EST Narrative 10/12/2024 6:23 [place] [address] Name: JOSE BARGER Exam Date: 10/12/2024 : 1995 Age 29 years Gender: F Physician: FEMI OAKES Facility: [facility] Facility HSV: Outpatient Exam: US TRANSVAGINAL [...] Thank you for referring JOSE BARGER to [facility]. Legally authenticated by TUAN BUTTERFIELD 2024-10-12 17:42:00 Procedure Note Provider, Generic [place] - 10/12/2024 [place] [address] Name: JOSE BARGER Exam Date: 10/12/2024 : 1995 Age 29 years Gender: F Physician: FEMI OAKES Facility: [facility] Facility HSV: Outpatient Exam: US TRANSVAGINAL [...] Thank you for referring JOSE BARGER to [facility]. Legally authenticated by TUAN BUTTERFIELD 2024-10-12 17:42:00 us Generic [place] Provider IMG US PROCEDURES Fi nal Result documented in this encounter Visit Diagnoses Not on filedocumented in this encounter Additional Health Concerns Assessment Noted Time A fall risk assessment has been complete d for the patient 05/24/2024 3:25 PM EDT A Body Mass Index follow-up plan has been documented for the patient 09/15/2024 10:01 AM EST documented as of this encounter Care Teams Director Of Research Relationship Specialty Start Date End Date Mecca Lam APRN [address] [place] [address] PCP - General Family Medicine 04/03/21 documented as of this encounter
--- OUTSIDE RECORDS SUMMARY | 2025-07-14 11:42 | XMS_ITS | Clinical Summary ---
Author Organization [facility] Address [address] [place] [address] Care Team Providers Care Public Relations Studies Director Name Role Phone Mecca Lam APRN Primary Care Provider [phone] Allergies Active Allergy Reactions Criticality Noted Date [...] Date Smoking Tobacco: Some Days Cigarettes 0.5 12.9 Started: 09/01/2012 Smokeless Tobacco: Never Tobacco Cessation:Ready [...] place to sleep or slept in a assisted (including now)? No 10/29/2023 PHQ-9 Answer Date [...] were you homeless or living in a assisted (including now)? No 09/06/2024 Utilities Answer Date [...] Screenings 03/06/2025 [facility]-Adult SDOH Screenings 03/06/2025 09/06/2024 [id number] Vaccine ( - season) 2025 [facility]-Influenza Vaccine [...] Antibody/Antigen Screen (10/18/2024 12:08 PM EST) Pathologist [facility] HIV 1 & 2 Antibody/Antigen Screen Non Reactive Non Reactive 10/18/2024 6:39 PM EST [facility] Comment:Screening for HIV 1 & 2 antibodies, and P24 antigen is NONREACTIVE. No confirmatory testing is required. Blood Venous blood specimen / Unknown Venipuncture / Unknown 10/18/2024 12:08 PM EST 10/18/2024 5:51 PM EST us Glenn Yarbrough MD LAB BLOOD ORDERABLES Final Resu lt Performing Organization Address City/[facility] Co de Phone Number [facility] [address] [place] [address] * Hepatitis C Antibody (10/18/2024 12:08 PM EST) Pathologist [facility] Hepatitis C Antibody Negative Negative 10/18/2024 6:34 PM EST [facility] Blood Venous blood specimen / Unknown Venipuncture / Unknown 10/18/2024 12:08 PM EST 10/18/2024 5:51 PM EST us Glenn Yarbrough MD LAB BLOOD ORDERABLES Final Resu lt [facility] [address] [place] [address] * Hemoglobin A1c (01/14/2023 11:11 AM EDT) Pathologist [facility] Hemoglobin A1c 5.5 <5.7 % 01/14/2023 2:08 PM EDT [facility] Blood Venous blood specimen [...] Adults <6.0% Children and Adolescents <7.5% Source: [place] [employer]. Standards of medical care in diabetes,2017. Diabetes Care.2017:40 (suppl 1):S1-S135. HbA1c assay performed by an ion-exchange chromatography method that is certified traceable to the DCCT. us Doris Aleman APRN LAB BLOOD ORDERABLES Final Res ult [facility] [address] [place] [phone] from Last 3 Months or Most Recently Relevant to Health Maintenance Additional Health Concerns Active Problems Noted Date Diagnosed Date CPM S24 PP LABOR (OBSTETRICS) 11/03/2024 Insurance ANTHEM Care Teams Public Relations Studies Director Relationship Specialty Start Date End Date Mecca Lam APRN [facility] [place] [address] [place] [address] PCP - General Family Medicine 04/03/21
== END 2025-07-14 23:59 | disposition home or self-care (01) ==
LOC: RT 11:24
PROVIDERS: Visit Provider Nurse Practitioner
DX: I49.1 Atrial premature depolarization (principal)
CPT/HCPCS: 93270

== ENCOUNTER 2025-07-15 09:38 | Outpatient (CLI) | payer BC, SELFPAY ==
--- NOTE | 2025-07-15 09:30 | CA_ITS ---
APPROVED REPORT EXAM: Comprehensive 2D, Doppler, and color-flow Echocardiogram Manager Mechanical Maintenance: NIESHA Rodriguez, RVS Ht: 5 ft 4 in Wt: 126lbs BSA: 1.61 BP: 154/97 mmHg Indications: CP,HTN-Preclampsia,Post part 10 weeks 05/05/25, Smoker 2D Dimensions LA Volume 57.00 mL LA Volume Index 34.50 mL/m2 (M/F) 16-34 M-Mode Dimensions RVDd 2.36 cm (0.9-2.6) LA Diam 2.97 cm (1.9-4.0) LVDd 4.83 cm (3.5-5.7) LVDs 2.74 cm (3.5-5.7) IVSd 0.76 cm (0.6-1.1) PWd 0.80 cm (0.6-1.1) EF (Teich) 74.30% EPSs 0.61 cm FS 43.30% EDV (Teich) 109.10 mL TAPSE 1.45 (<1.7) ESV (Teich) 28.00 mL LV Diastology E Decel Time 157 (160-240 msec) E/A Ratio 1.46 MED A' 8.10 cm/s LAT A' 7.90 cm/s Aortic Valve AoV Peak Karson. 128.0 (50-130 cm/s) AO Peak GR. 6.50 mmHg AO Mean GR. 3.30 (<5 mmHg) AO VTI 26.3 (18-25 cm) Mitral Valve MV A Velocity 93.0 (40-130 cm/s) E/A Ratio 1.46 Pulmonary Valve PV Peak Velocity 88.0 (50-150 cm/s) Left Ventricle The left ventricle is normal size. Left ventricular systolic function is normal. The left ventricular ejection fraction is within the normal range. There is normal left ventricular wall thickness. There is normal LV segmental wall motion. The left ventricular diastolic function is normal. LVEF is 55% Right Ventricle The right ventricle is normal size. The right ventricular systolic function is normal. Atria The left atrium size is normal. The right atrium size is normal. There is no color Doppler evidence of interatrial shunt. Aortic Valve The aortic valve opens well. There is no hemodynamically significant aortic valvular stenosis. No aortic regurgitation is present. Mitral Valve The mitral valve is normal in structure. No evidence of mitral valve stenosis. Trace mitral regurgitation is present. Tricuspid Valve The tricuspid valve leaflets are thin and pliable. Trace tricuspid regurgitation. There is insufficient TR jet to estimate RVSP. Pulmonic Valve The pulmonary valve is grossly normal in structure. Trace pulmonic valve regurgitation is present. Great Vessels The aortic root is normal in size. IVC is normal in size and collapses >50% with inspiration. Pericardium There is no pericardial effusion. Other Information Study Quality: Fair Conclusion Normal biventricular systolic function. No significant valvular stenosis or regurgitation. Electronically signed by : Ale George MD 07/18/2025 13:07:42
--- OUTSIDE RECORDS SUMMARY | 2025-07-15 09:44 | XMS_ITS | Clinical Summary ---
Author Organization [facility] Address [address] [place] [address] Care Team Providers Care Market Superintendent Name Role Phone Francie Fisher APRN Primary Care Provider [phone] Social History Tobacco Use Types Packs/Day Years [...] age to complete this topic Care Teams Market Superintendent Relationship Specialty Start Date End Date Francie Fihser APRN [address] [place] [address] [place] [address] PCP - General Family Medicine 12/21/20
--- OUTSIDE RECORDS SUMMARY | 2025-07-15 09:44 | XMS_ITS | Encounter Summary ---
Author Organization [facility] Address [address] [place] [address] Care Team Providers Care Medical Lab Assistant Name Role Phone Mecca Lam APRN Primary Care Provider [phone] Encounter Details Date Type Department Care Team (Late st Contact Info) Description 10/12/2024 Outside Procedure External Location [address] [place] [address] Provider, [place] Social History Tobacco Use Types Packs/Day Years [...] place to sleep or slept in a prison (including now)? No 10/29/2023 Housing Stability Vital Sign Answer Wil e Recorded In the last 12 months, was t here a time when you were not able to pay the mortgage or rent on time? No 09/06/2024 In the past 12 months, how m any times have you moved where you were living? 0 09/06/2024 At any time in the past 12 m [facility], were you homeless or living in a prison (including now)? No 09/06/2024 Utilities Answer Date [...] PM EST Narrative 10/12/2024 6:23 [place] [address] Name: JOSE BARGER Exam Date: 10/12/2024 : 1995 Age 29 years Gender: F Physician: FEMI OAKES Facility: [facility] Facility HSV: Outpatient Exam: US TRANSVAGINAL [...] Thank you for referring JOSE BARGER to [facility]. Legally authenticated by TUAN BUTTERFIELD 2024-10-12 17:42:00 Procedure Note Provider, Generic [place] - 10/12/2024 [place] [address] Name: JOSE BARGER Exam Date: 10/12/2024 : 1995 Age 29 years Gender: F Physician: FEMI OAKES Facility: [facility] Facility HSV: Outpatient Exam: US TRANSVAGINAL [...] Thank you for referring JOSE BARGER to [facility]. Legally authenticated by TUAN BUTTERFIELD 2024-10-12 17:42:00 us Generic [place] Provider IMG US PROCEDURES Fi nal Result [...] as of this encounter Care Teams Medical Lab Assistant Relationship Specialty Start Date End Date Mecca Lam APRN [address] [place] [address] PCP - General Family Medicine 04/03/21 documented as of this encounter
--- OUTSIDE RECORDS SUMMARY | 2025-07-15 09:44 | XMS_ITS | Clinical Summary ---
Author Organization [facility] Address [address] [place] [address] Care Team Providers Care Obstetrics Nurse Name Role Phone Mecca Lam APRN Primary Care Provider [phone] Allergies Active Allergy Reactions Criticality Noted Date [...] place to sleep or slept in a alf (including now)? No 10/29/2023 PHQ-9 Answer Date [...] were you homeless or living in a alf (including now)? No 09/06/2024 Utilities Answer Date [...] Screenings 03/06/2025 [facility]-Adult SDOH Screenings 03/06/2025 09/06/2024 IFN-PIAFY-33 Vaccine ( - season) 2025 [facility]-Influenza Vaccine [...] Reactive Non Reactive 10/18/2024 6:39 PM EST [facility] Comment:Screening for HIV 1 & 2 antibodies, and P24 antigen is NONREACTIVE. No confirmatory testing is required. Blood Venous blood specimen / Unknown Venipuncture / Unknown 10/18/2024 12:08 PM EST 10/18/2024 5:51 PM EST us Glenn Yarbrough MD LAB BLOOD ORDERABLES Final Resu lt Performing Organization Address City/[facility] Co de Phone Number [facility] [address] [place] [address] * Hepatitis C Antibody (10/18/2024 12:08 PM EST) Pathologist [facility] Hepatitis C Antibody Negative Negative 10/18/2024 6:34 PM EST [facility] Blood Venous blood specimen / Unknown Venipuncture / Unknown 10/18/2024 12:08 PM EST 10/18/2024 5:51 PM EST us Glenn Yarbrough MD LAB BLOOD ORDERABLES Final Resu lt [facility] [address] [place] [address] * Hemoglobin A1c (01/14/2023 11:11 AM EDT) Pathologist [facility] Hemoglobin A1c 5.5 <5.7 % 01/14/2023 2:08 PM EDT [facility] Blood Venous blood specimen / [...] Adults <6.0% Children and Adolescents <7.5% Source: [place] [employer]. Standards of medical care in diabetes,2017. Diabetes Care.2017:40 (suppl 1):S1-S135. HbA1c assay performed by an ion-exchange chromatography method that is certified traceable to the DCCT. us Doris Aleman APRN LAB BLOOD ORDERABLES Final Res ult [facility] [address] [place] [id number] from Last 3 Months or Most Recently Relevant to Health Maintenance Additional Health Concerns Active Problems Noted Date Diagnosed Date CPM S24 PP LABOR (OBSTETRICS) 11/03/2024 Insurance ANTHEM Care Teams Obstetrics Nurse Relationship Specialty Start Date End Date Mecca Lam APRN [facility] [place] [address] [address] PCP - General Family Medicine 04/03/21
== END 2025-07-15 23:59 | disposition home or self-care (01) ==
LOC: RT 09:38
PROVIDERS: Visit Provider Nurse Practitioner
DX: O11.5 Pre-existing hypertension with pre-eclampsia, complicating the puerperium (principal); O10.93 Unspecified pre-existing hypertension complicating the puerperium; R07.9 Chest pain, unspecified; F17.200 Nicotine dependence, unspecified, uncomplicated
CPT/HCPCS: 93306

== ENCOUNTER 2025-08-01 12:00 | Outpatient (CLI) | payer BC, SELFPAY ==
[2025-08-01 12:22] LABS: Hematocrit 36.1 % (37.0-47.0); Hemoglobin 11.7 g/dL (12.2-16.2); Immature Granulocytes % 0.2 %; Mean Corpuscular HGB Conc 32.4 g/dL (31.8-35.4); Mean Corpuscular Hemoglobin 30.0 pg (27.0-31.2); Mean Corpuscular Volume 92.6 fl (81-99); Nucleated Red Blood Cells % 0 %; Platelet Count 193 K/mm3 (142-424); Red Blood Count 3.90 M/mm3 (4.20-5.40); Red Cell Distribution Width-SD 47.9 fL; White Blood Count 6.3 K/mm3 (4.8-10.8)
[2025-08-01 12:45] LABS: Albumin Level 4.5 g/dl (3.5-5.0)
[2025-08-01 12:46] LABS: Chloride 103 mmol/L (98-107); Potassium 4.4 mmoL/L (3.5-5.1); Sodium 142 mmol/L (136-145)
[2025-08-01 12:48] LABS: Alanine Aminotransferase 23 U/L (12-78); Anion Gap 16.4 mEq/L (5-15); Aspartate Amino Transferase 29 U/L (14-36); Bilirubin,Unconjugated 0.1 mg/dL (0.0-1.1); Blood Urea Nitrogen 10 mg/dl (7-17); Carbon Dioxide 27 mmol/L (22.0-30.0); Creatinine,Serum 0.80 mg/dl (0.52-1.04); Estimated Glomerular Filt Rate 85 ml/min (>60); GFR (African American) 103 ML/MIN (>60); Total Protein,Serum 7.6 g/dl (6.3-8.2)
[2025-08-01 12:49] LABS: Alkaline Phosphatase 54 U/L (38-126); Bilirubin,Direct 0.1 mg/dl (0.0-0.4); Bilirubin,Indirect 0.1 mg/dL (0.0-0.9); Bilirubin,Total 0.2 mg/dl (0.2-1.3); Calcium 9.1 mg/dl (8.4-10.2); Cholesterol 191 mg/dl (140-200); Glucose 84 mg/dl (74-100); HDL Cholesterol 54 mg/dl (40-60); Magnesium 2.1 mg/dl (1.6-2.3); Triglycerides 142 mg/dl (30-150)
[2025-08-01 13:05] LABS: Free T4 (Free Thyroxine) 1.00 ng/dl (0.78-2.19)
[2025-08-01 13:21] LABS: Thyroid Stimulating Hormone 1.94 uIU/mL (0.465-4.68)
== END 2025-08-01 23:59 | disposition home or self-care (01) ==
LOC: LAB 12:00
PROVIDERS: Visit Provider Nurse Practitioner
DX: I10 Essential (primary) hypertension (principal)
CPT/HCPCS: 36415; 80048; 80061; 80076; 82088; 82384; 83735; 83835; 84439; 84443; 85025